=== PATIENT | female | born 1955 | race Caucasian/White ===

== ENCOUNTER → 2019-11-23 09:23 | Outpatient (BNVA) | payer OTHER, SELFPAY | PROVIDERS: Family Provider Family Medicine; PCP Family Medicine; Visit Provider Family Medicine | DX: Z13.6 Encounter for screening for cardiovascular disorders (principal); M54.6 Pain in thoracic spine; G89.29 Other chronic pain; R10.13 Epigastric pain | CPT/HCPCS: 80053; 80061; 85025 ==

== ENCOUNTER 2020-12-22 14:23 | Emergency (ER) | payer OTHER, SELFPAY ==
[2020-12-22 14:56] VITALS: BP 194/82; PULSE 79; RESP 14; TEMP 36.7; O2SAT 98; BMI 19.7
[2020-12-22 15:07] VITALS: BP 174/84; PULSE 74; RESP 16; O2SAT 97
--- NOTE | 2020-12-22 15:17 | CTR_ITS ---
PROCEDURE INFORMATION: Exam: CT Head Without Contrast Exam date and time: 12/22/2020 3:35 PM Age: 65 years old Clinical indication: Injury or trauma; Fall; Blunt trauma (contusions or hematomas); Without loss of consciousness; Patient HX: Slipped on ice hitting back of head denies loc; Additional info: Fall, head injury, dizziness. TECHNIQUE: Imaging protocol: Computed tomography of the head without contrast. Radiation optimization: All CT scans at this facility use at least one of these dose optimization techniques: automated exposure control; mA and/or kV adjustment per patient size (includes targeted exams where dose is matched to clinical indication); or iterative reconstruction. COMPARISON: No relevant prior studies available. RADIATION DOSE METRICS: Total DLP (mGy-cm): 751.41 FINDINGS: Brain: Mild cerebral atrophy. Mild scattered patchy decreased attenuation changes in the periventricular white matter most likely representing mild chronic microangiopathic ischemic disease features. No hemorrhage. Unremarkable white matter. No mass effect. Cerebral ventricles: No ventriculomegaly. Bones/joints: Unremarkable. No acute fracture. Paranasal sinuses: Visualized sinuses are unremarkable. No fluid levels. Mastoid air cells: Visualized mastoid air cells are well aerated. Soft tissues: Unremarkable. CT/CT head wo con* [id number] IMPRESSION: No acute intracranial abnormality. Radiation Dose CTDIVOL = (mGy): DLP = 751.41 (mGy-cm)
--- NOTE | 2020-12-22 16:20 | W.ED.FALL ---
HPI - Fall General: Chief Complaint: Fall Stated Complaint: Fell and hit back of head Time Seen by Provider: 12/22/20 15:03 Source: patient Mode of arrival: ambulatory Limitations: no limitations History of Present Illness: HPI Narrative: Patient is a 65-year-old female patient who slipped on ice home fell and hit the back of her head. She denies any loss of consciousness. She is not on anticoagulation. She denies dizziness but has nausea and a headache which she says is pretty bad. She is here to be evaluated. She said her father had an intracranial bleed. complaint: fall Onset (ago): hour(s) (1) Fall from: standing Fall witnessed: yes, by family Place fall occurred: home Loss of consciousness: None Prolonged down time: no Symptoms prior to fall: none Context: tripped/slipped (slipped on ice) Quality: dull Associated symptoms-after fall: Reports headache(s); Denies abdominal pain or neck pain Review of Systems General: Reports: 10 or more systems reviewed and unremarkable except in HPI and below Const: Denies: fever(s), chills or body aches Eyes: Denies: change in vision or blurry vision ENMT: Denies: throat pain, enlarged tonsils, odynophagia, hoarseness, mouth pain or swelling of lips/tongue Card: Denies: palpitations, irregular heart rhythm, edema or swelling of feet/ankles Resp: Denies: dyspnea, productive cough or non-productive cough GI: Reports: nausea; Denies: abdominal pain or vomiting : Denies: flank pain, difficulty voiding, dysuria, urinary frequency, urinary urgency or urinary hesitancy Musc: Denies: neck pain, back pain or extremity swelling Skin/Breast: Denies: rash, pruritus or erythema Neuro: Reports: headache(s) Endo: Denies: polyuria, polydipsia or tired all the time PFSH ED PFSH: Medical History (Reviewed 12/22/20 @ 17:38 by Sandy Villagomez MD, [facility] – [place]) Chronic thoracic back pain GERD (gastroesophageal reflux disease) Surgical History (Reviewed 12/22/20 @ 17:38 by Sandy Villagomez MD, [facility] – [place] H/O: hysterectomy S/P appendectomy S/P tonsillectomy and adenoidectomy Family History (Reviewed 12/22/20 @ 17:38 by Sandy Villagomez MD, [facility] – [place]) Other Diabetes Hypertension Social History (Reviewed 12/22/20 @ 17:38 by Sandy Villagomez MD, [facility] – [place]) Smoking and tobacco status: never smoked Alcohol intake: never Physical Exam Const: COMMON NORMALS: no acute distress, average body habitus, patient oriented x3, no limitations, healthy appearing, alert and well nourished HENMT: COMMON NORMALS: normocephalic, atraumatic and moist oral mucous membranes HEAD & SCALP: normocephalic and atraumatic Eye: COMMON NORMALS: Equal, round and reactive pupils present, EOMs intact bilaterally, conjunctivae normal and no scleral icterus CONJUNCTIVA: Yes conjunctivae normal PUPIL: Yes Equal, round and reactive pupils present Neck/C-Spine: COMMON NORMALS: full ROM, supple, no meningeal signs, no JVD and No carotid bruits CERVICAL SPINE: Yes cervical ROM normal, Yes normal cervical lordosis, No cervical ROM abnormal, No pain with cervical ROM and No Cervical spine tenderness Resp: COMMON NORMALS: normal respiratory effort, No retractions, No use of accessory muscles, clear to auscultation bilaterally and percussion normal AUSCULTATION: clear to auscultation bilaterally PERCUSSION: percussion normal Cardio: COMMON NORMALS: no JVD, regular rate, regular rhythm, S1 normal heart sound present, S2 normal heart sound present, No gallops present (Cardio), No clicks present (Cardio), No murmurs present (Cardio), No rub (Cardio) and Peripheral pulses 2+ throughout RATE: regular rate RHYTHM: regular rhythm HEART SOUNDS: S1 normal heart sound present and S2 normal heart sound present PERIPHERAL PULSES: Peripheral pulses 2+ throughout GI: COMMON NORMALS: Normal to inspection, nondistended, normoactive bowel sounds present, Soft to palpation, non-tender, No hepatosplenomegaly present, no masses and no bruits PALPATION: Yes Soft to palpation and Yes No hepatosplenomegaly present Extremity: COMMON NORMALS: normal to inspection, full ROM, capillary refill normal, no calf tenderness and no pedal edema Neuro: COMMON NORMALS: patient oriented x3 SENSORIUM/ORIENTATION: Yes alert MENINGEAL SIGNS: Yes no meningeal signs Skin: COMMON NORMALS: no rashes or lesions noted, no wounds, turgor normal, no jaundice, no petechiae and no mottling GENERAL SKIN EXAM: no rashes or lesions noted and turgor normal Course Reevaluation(s): Reevaluation #1: Discussed imaging findings with her. Negative for acute findings. Explained that she likely has a concussion from the fall. Given head injury and concussion instructions. Patient and her voiced understanding and they are in agreement with the plan. Time: 16:20 Vital Signs: Vital signs: Vital Signs Temperature 98.1 F 12/22/20 14:56 Pulse Rate 74 12/22/20 15:07 Respiratory Rate 16 12/22/20 15:07 Blood Pressure 174/84 12/22/20 15:07 Pulse Oximetry 97 12/22/20 15:07 MDM - Fall MDM Narrative: Medical decision making narrative: Patient is a 65-year-old female who slipped on ice and sustained a mild closed head injury. She likely also has a concussion. No acute findings on exam or imaging. She is discharged home with concussion instructions. Medical Records: Attestation: I reviewed the patient's medical records. Imaging Data^: CT Head: Attestation: I personally reviewed and interpreted this imaging study as follows: Radiologist's impression: [address] [address] [address] Scan Report Signed Patient: Zaida Matos #: [id number] : 6Acct#:[id number] Age/Sex: 65 / FADM Date: 12/22/20 Loc: ERRoom/Bed: Attending Dr: Ordering Provider/Ordering MD: Sandy Villagomez MD, [facility] – [place] Date of Service: 12/22/20 Procedure(s): CT head wo con* [id number] Accession Number(s): [id number] Report Number: [id number] PROCEDURE INFORMATION: Exam: CT Head Without Contrast Exam date and time: 12/22/2020 3:35 PM Age: 65 years old Clinical indication: Injury or trauma; Fall; Blunt trauma (contusions or hematomas); Without loss of consciousness; Patient HX: Slipped on ice hitting back of head denies loc; Additional info: Fall, head injury, dizziness. TECHNIQUE: Imaging protocol: Computed tomography of the head without contrast. Radiation optimization: All CT scans at this facility use at least one of these dose optimization techniques: automated exposure control; mA and/or kV adjustment per patient size (includes targeted exams where dose is matched to clinical indication); or iterative reconstruction. COMPARISON: No relevant prior studies available. RADIATION DOSE METRICS: Total DLP (mGy-cm): 751.41 FINDINGS: Brain: Mild cerebral atrophy. Mild scattered patchy decreased attenuation changes in the periventricular white matter most likely representing mild chronic microangiopathic ischemic disease features. No hemorrhage. Unremarkable white matter. No mass effect. Cerebral ventricles: No ventriculomegaly. Bones/joints: Unremarkable. No acute fracture. Paranasal sinuses: Visualized sinuses are unremarkable. No fluid levels. Mastoid air cells: Visualized mastoid air cells are well aerated. Soft tissues: Unremarkable. CT/CT head wo con* [id number] IMPRESSION: No acute intracranial abnormality. Radiation Dose CTDIVOL = (mGy): DLP = 751.41 (mGy-cm) Dictated By:Rainer Perez Signed By:Jeannette Perez Date/Time:12/22/20 1600 DD/ 155 Discharge Plan Discharge Patient Disposition: Home Clinical Impression: Concussion without loss of consciousness Qualifiers: Encounter type: initial encounter Qualified Code(s): S06.0X0A - Concussion without loss of consciousness, initial encounter Mild closed head injury Qualifiers: Encounter type: initial encounter Qualified Code(s): S09.90XA - Unspecified injury of head, initial encounter Condition: Stable Prescriptions: Continued Adult Probiotic 3 billion cell capsule 3,000 mmu cells PO QDAY RF: 0 meclizine 25 mg tablet 25 mg PO DAILY RF: 0 cetirizine [Zyrtec] 10 mg tablet 10 mg PO DAILY RF: 0 estradiol 1 mg tablet 1 mg PO DAILY RF: 0 omeprazole 40 mg capsule,delayed release(DR/EC) 40 mg PO DAILY RF: 0 Discharge Orders: Discharge ED (Routine); Ordered 12/22/20 Ordered By: Sandy Villagomez Referrals: Megha Martines DO [Primary Care Provider] - 1-3 days Discharge Diet: Usual diet Discharge Activity: Increase activity as tolerated Patient Instructions: Concussion/Head Injury - Adult, Concussion (ED) Activity Restrictions/Additional Instructions: Return for any new or worsening symptoms. Follow-up with your primary care provider within 3 days. You need to be observed for the next 24 hours for signs of severe head injury. The signs were to include worsening headaches, continuous vomiting with nonstop pain, trouble walking, change in mental status. You need to rest your brain for the next 1 week, so as much as possible stay in a darkened room, avoid TV, avoid using her phone, avoid reading books or other activities that may stimulate your brain. Coding Level of Care Code ED Sea Captain for Esthela Fitch
[2020-12-22] MEDS: ketorolac 30 mg/mL INJ IM (16:49)
== END 2020-12-22 17:18 | disposition home or self-care (01) ==
PROVIDERS: Emergency Provider Family Medicine; PCP Family Medicine
DX: S06.0X0A Concussion without loss of consciousness, initial encounter (principal); W00.0XXA Fall on same level due to ice and snow, initial encounter
CPT/HCPCS: 70450; 96372; 99283; J1885

== ENCOUNTER → 2022-02-23 08:36 | Outpatient (BNVA) | payer MEDICARE, OTHER, SELFPAY | PROVIDERS: PCP Family Medicine; Visit Provider Family Medicine | DX: I10 Essential (primary) hypertension (principal) | CPT/HCPCS: 80053; 80061; 82043; 85025 ==

== ENCOUNTER → 2022-03-03 13:08 | Outpatient (BNVA) | payer MEDICARE, OTHER, SELFPAY | PROVIDERS: PCP Family Medicine; Referring Provider Family Medicine; Visit Provider Podiatrist Foot & Ankle Surgery | DX: L84 Corns and callosities (principal); M20.41 Other hammer toe(s) (acquired), right foot; M20.42 Other hammer toe(s) (acquired), left foot; L60.3 Nail dystrophy | CPT/HCPCS: 99203; 99204 ==

== ENCOUNTER → 2022-05-17 10:18 | Outpatient (BNVA) | payer MEDICARE, OTHER, SELFPAY | PROVIDERS: PCP Family Medicine; Visit Provider Registered Nurse Neonatal Intensive Care | DX: N39.0 Urinary tract infection, site not specified (principal); R39.9 Unspecified symptoms and signs involving the genitourinary system | CPT/HCPCS: 81000 ==

== ENCOUNTER → 2022-05-19 15:34 | Outpatient (BNVA) | payer MEDICARE, OTHER, SELFPAY | PROVIDERS: PCP Family Medicine; Visit Provider Otolaryngology | DX: H72.92 Unspecified perforation of tympanic membrane, left ear (principal) | CPT/HCPCS: 99203 ==

== ENCOUNTER → 2022-05-25 08:46 | Outpatient (BNVA) | payer MEDICARE, OTHER, SELFPAY | PROVIDERS: PCP Family Medicine; Visit Provider Family Medicine | DX: N39.0 Urinary tract infection, site not specified (principal) | CPT/HCPCS: 81000; 87086 ==

== ENCOUNTER → 2022-06-08 08:22 | Outpatient (BNVA) | payer MEDICARE, OTHER, SELFPAY | PROVIDERS: PCP Family Medicine; Visit Provider Family Medicine | DX: N39.0 Urinary tract infection, site not specified (principal) | CPT/HCPCS: 81000 ==

== ENCOUNTER → 2022-06-19 09:20 | Outpatient (BNVA) | payer MEDICARE, OTHER, SELFPAY | PROVIDERS: PCP Family Medicine; Visit Provider Otolaryngology | DX: H72.92 Unspecified perforation of tympanic membrane, left ear (principal); H69.82 Other specified disorders of Eustachian tube, left ear | CPT/HCPCS: 99213 ==

== ENCOUNTER → 2022-06-25 17:07 | Outpatient (BNVA) | payer MEDICARE, SELFPAY | PROVIDERS: PCP Family Medicine; Visit Provider Registered Nurse Neonatal Intensive Care | DX: N39.0 Urinary tract infection, site not specified (principal); R39.9 Unspecified symptoms and signs involving the genitourinary system | CPT/HCPCS: 81000; 87086 ==

== ENCOUNTER → 2022-07-06 09:12 | Outpatient (BNVA) | payer MEDICARE, OTHER, SELFPAY | PROVIDERS: PCP Family Medicine; Visit Provider Nurse Practitioner Family | DX: R33.9 Retention of urine, unspecified (principal); R31.29 Other microscopic hematuria | CPT/HCPCS: 51798; 81003; 99203 ==

== ENCOUNTER → 2022-09-15 14:01 | Outpatient (BNVA) | payer MEDICARE, OTHER, SELFPAY | PROVIDERS: PCP Family Medicine; Visit Provider Urology | DX: R31.29 Other microscopic hematuria (principal); Z87.440 Personal history of urinary (tract) infections | CPT/HCPCS: 81003; 99212 ==

== ENCOUNTER → 2022-09-22 13:20 | Outpatient (BNVA) | payer MEDICARE, OTHER, SELFPAY | PROVIDERS: PCP Family Medicine; Visit Provider Family Medicine | DX: I10 Essential (primary) hypertension (principal) | CPT/HCPCS: 80053 ==

== ENCOUNTER → 2022-09-24 13:20 | Outpatient (BNVA) | payer MEDICARE, OTHER, SELFPAY | PROVIDERS: PCP Family Medicine; Visit Provider Family Medicine | DX: R79.89 Other specified abnormal findings of blood chemistry (principal); R73.09 Other abnormal glucose | CPT/HCPCS: 83036; 86705; 86706; 86709; 86803; 87340 ==

== ENCOUNTER → 2022-10-29 14:30 | Outpatient (BNVA) | payer MEDICARE, SELFPAY | PROVIDERS: PCP Family Medicine; Visit Provider Family Medicine | DX: L81.9 Disorder of pigmentation, unspecified (principal); L98.9 Disorder of the skin and subcutaneous tissue, unspecified | CPT/HCPCS: 88304 ==

== ENCOUNTER → 2023-03-23 08:16 | Outpatient (BNVA) | payer MEDICARE, SELFPAY | PROVIDERS: PCP Family Medicine; Visit Provider Family Medicine | DX: I10 Essential (primary) hypertension (principal) | CPT/HCPCS: 80053; 80061; 82043; 85025 ==

== ENCOUNTER → 2023-06-30 09:35 | Outpatient (BNVA) | payer MEDICARE, SELFPAY | PROVIDERS: PCP Family Medicine; Visit Provider Nurse Practitioner Family | DX: L81.4 Other melanin hyperpigmentation; D22.5 Melanocytic nevi of trunk; L57.8 Other skin changes due to chronic exposure to nonionizing radiation; L82.1 Other seborrheic keratosis | CPT/HCPCS: 99213 ==

== ENCOUNTER 2023-09-24 13:57 | Outpatient (CLI) | payer MEDICARE, SELFPAY ==
--- NOTE | 2023-09-24 14:30 | XR_ITS ---
WS: [id number] SCREENING DEXA SCAN [employer] CLINICAL INFORMATION: postmenopausal COMPARISON: None. FINDINGS: The L1-L4 bone mineral density measures 1.059 g/cm2. This corresponds to a T score score of -1.0 and Z score of 1.0. Left femoral neck bone mineral density measures 0.802 g/cm2. This corresponds to a T score of -1.6 an d Z score of 0.0. Right femoral neck bone mineral density measures 0.847 g/cm2. This corresponds to a T score -1.3of an d Z score of 0.3. Mean femoral neck bone mineral density measures 0.825 g/cm2. This corresponds to a T score of -1.5 an d Z score of 0.1. IMPRESSION: Osteopenia lumbar spine at the lower end of the range. Osteopenia femoral necks. Patient's FRAX calcu lated 10 year probability for major osteoporotic fracture is 9.4% and osteoporotic hip fracture is 1. 5%.
== END 2023-09-24 13:58 | disposition home or self-care (01) ==
LOC: RAD 13:57
PROVIDERS: PCP Family Medicine; Visit Provider Family Medicine
DX: Z78.0 Asymptomatic menopausal state (principal); M85.89 Other specified disorders of bone density and structure, multiple sites
CPT/HCPCS: 77080

== ENCOUNTER → 2024-03-21 08:33 | Outpatient (BNVA) | payer MEDICARE, SELFPAY | PROVIDERS: PCP Family Medicine; Visit Provider Family Medicine | DX: I10 Essential (primary) hypertension (principal); Z13.6 Encounter for screening for cardiovascular disorders | CPT/HCPCS: 80053; 80061; 82043; 85025 ==

== ENCOUNTER → 2024-04-04 08:01 | Outpatient (BNVA) | payer MEDICARE, SELFPAY | PROVIDERS: PCP Family Medicine; Visit Provider Nurse Practitioner Family | DX: R39.89 Other symptoms and signs involving the genitourinary system (principal) | CPT/HCPCS: 81000; 87086 ==

== ENCOUNTER → 2024-06-03 12:53 | Outpatient (BNVA) | payer MEDICARE, SELFPAY | PROVIDERS: PCP Family Medicine; Visit Provider Emergency Medicine | DX: S69.91XA Unspecified injury of right wrist, hand and finger(s), initial encounter (principal); W19.XXXA Unspecified fall, initial encounter | CPT/HCPCS: 73130 ==

== ENCOUNTER → 2024-06-20 10:15 | Outpatient (BNVA) | payer MEDICARE, SELFPAY | PROVIDERS: PCP Family Medicine; Visit Provider Student in an Organized Health Care Education/Training Program | DX: S60.221A Contusion of right hand, initial encounter; W10.9XXA Fall (on) (from) unspecified stairs and steps, initial encounter | CPT/HCPCS: 73130 ==

== ENCOUNTER 2024-06-20 12:00 | Outpatient (CLI) | payer MEDICARE, SELFPAY | END 2024-06-20 12:01 | disposition home or self-care (01) | LOC: SPT 12:01 | PROVIDERS: PCP Family Medicine; Visit Provider Student in an Organized Health Care Education/Training Program | DX: Z46.89 Encounter for fitting and adjustment of other specified devices (principal); M25.541 Pain in joints of right hand; S69.90XD Unspecified injury of unspecified wrist, hand and finger(s), subsequent encounter; X58.XXXD Exposure to other specified factors, subsequent encounter | CPT/HCPCS: 97760; L3908 ==

== ENCOUNTER 2024-06-23 09:49 | Outpatient (RCR) | payer MEDICARE, SELFPAY | END 2024-07-08 23:59 | disposition home or self-care (01) | LOC: SOT 09:49 | PROVIDERS: PCP Family Medicine Adult Medicine; Visit Provider Student in an Organized Health Care Education/Training Program | DX: S60.051A Contusion of right little finger without damage to nail, initial encounter (principal); X58.XXXA Exposure to other specified factors, initial encounter | CPT/HCPCS: 97022; 97110; 97140; 97165; 97530 ==

== ENCOUNTER → 2024-06-30 08:13 | Outpatient (BNVA) | payer MEDICARE, SELFPAY | PROVIDERS: PCP Family Medicine Adult Medicine; Visit Provider Nurse Practitioner Family | DX: D23.5 Other benign neoplasm of skin of trunk (principal); D23.71 Other benign neoplasm of skin of right lower limb, including hip; L81.4 Other melanin hyperpigmentation; D22.5 Melanocytic nevi of trunk; L57.8 Other skin changes due to chronic exposure to nonionizing radiation; L82.1 Other seborrheic keratosis; L57.0 Actinic keratosis; B07.8 Other viral warts | CPT/HCPCS: 17000; 17110; 99213 ==

== ENCOUNTER 2024-07-09 06:00 | Outpatient (RCR) | payer MEDICARE, SELFPAY | END 2024-08-07 23:59 | disposition home or self-care (01) | LOC: SOT 06:00 | PROVIDERS: PCP Family Medicine Adult Medicine; Visit Provider Student in an Organized Health Care Education/Training Program | DX: S60.051A Contusion of right little finger without damage to nail, initial encounter (principal); X58.XXXA Exposure to other specified factors, initial encounter | CPT/HCPCS: 97022; 97110; 97140 ==

== ENCOUNTER → 2024-07-18 09:36 | Outpatient (BNVA) | payer MEDICARE, SELFPAY | PROVIDERS: PCP Family Medicine Adult Medicine; Visit Provider Student in an Organized Health Care Education/Training Program | DX: S60.221D Contusion of right hand, subsequent encounter; X58.XXXD Exposure to other specified factors, subsequent encounter | CPT/HCPCS: 73130; 99213 ==

== ENCOUNTER → 2024-08-04 08:06 | Outpatient (BNVA) | payer MEDICARE, SELFPAY | PROVIDERS: PCP Family Medicine Adult Medicine; Visit Provider Nurse Practitioner Family | DX: D23.5 Other benign neoplasm of skin of trunk (principal); D23.71 Other benign neoplasm of skin of right lower limb, including hip; L81.4 Other melanin hyperpigmentation; D22.5 Melanocytic nevi of trunk; L57.8 Other skin changes due to chronic exposure to nonionizing radiation; L82.1 Other seborrheic keratosis; B07.8 Other viral warts; L57.0 Actinic keratosis | CPT/HCPCS: 17000; 17110; 99213 ==

== ENCOUNTER → 2024-09-14 07:52 | Outpatient (BNVA) | payer MEDICARE, SELFPAY | PROVIDERS: PCP Family Medicine Adult Medicine; Visit Provider Nurse Practitioner Family | DX: L81.4 Other melanin hyperpigmentation (principal); D22.4 Melanocytic nevi of scalp and neck; L57.8 Other skin changes due to chronic exposure to nonionizing radiation; B07.8 Other viral warts; L57.0 Actinic keratosis | CPT/HCPCS: 17000; 17110; 99213 ==

== ENCOUNTER → 2024-10-17 07:56 | Outpatient (BNVA) | payer MEDICARE, SELFPAY | PROVIDERS: PCP Family Medicine Adult Medicine; Visit Provider Nurse Practitioner Family | DX: L57.8 Other skin changes due to chronic exposure to nonionizing radiation (principal); B07.8 Other viral warts; L29.89 Other pruritus; L53.8 Other specified erythematous conditions | CPT/HCPCS: 17110; 99213 ==

== ENCOUNTER → 2024-12-15 08:12 | Outpatient (BNVA) | payer MEDICARE, SELFPAY | PROVIDERS: PCP Family Medicine Adult Medicine; Visit Provider Nurse Practitioner Family | DX: B07.8 Other viral warts (principal); L57.8 Other skin changes due to chronic exposure to nonionizing radiation | CPT/HCPCS: 99213 ==

== ENCOUNTER → 2025-03-15 08:25 | Outpatient (BNVA) | payer MEDICARE, SELFPAY | PROVIDERS: PCP Family Medicine; Visit Provider Family Medicine | DX: I10 Essential (primary) hypertension (principal) | CPT/HCPCS: 80053; 80061; 81003; 84443; 85025 ==

== ENCOUNTER → 2025-07-02 09:17 | Outpatient (BNVA) | payer MEDICARE, SELFPAY | PROVIDERS: PCP Family Medicine; Visit Provider Nurse Practitioner Family | DX: L81.4 Other melanin hyperpigmentation (principal); L57.8 Other skin changes due to chronic exposure to nonionizing radiation; L82.1 Other seborrheic keratosis; D22.4 Melanocytic nevi of scalp and neck; I99.8 Other disorder of circulatory system | CPT/HCPCS: 11102; 69100; 99213 ==

== ENCOUNTER 2025-08-06 06:50 | Emergency (ER) | payer MEDICARE, SELFPAY ==
--- OUTSIDE RECORDS SUMMARY | 2025-08-06 06:54 | XMS_ITS | Encounter Summary ---
Author Organization [facility] Address [address] [place] [address] Care Team Providers Care Principal Associate Name Role Phone Megha Martines DO Primary Care Provider +1- [phone] Encounter Details Date Type Department Care Team (Latest Contact Info) Description 06/10/2006 Outpatient Historical [facility] Ortiz, Jose Dominguez MD NO ADDRESS ON FILE Lump or Mass in Breast (Primary Dx) Social History Tobacco Use Types Packs/Day Years Used Date Smoking Tobacco: Never Assessed Comments Unknown Sex and Gender Information Value Date Recorded Sex Assigned at Not on file 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
--- OUTSIDE RECORDS SUMMARY | 2025-08-06 06:54 | XMS_ITS | Encounter Summary ---
Author Organization [facility] Address [address] [place] [address] Care Team Providers Care Industrial Design Engineer Name Role Phone Megha Martines DO Primary Care Provider +1- [phone] Encounter Details Date Type Department Care Team (Latest Contact Info) Description 06/02/2006 Outpatient Historical [facility] [address] [facility] [address] [place] [id number] Delmy Arroyo MD NO ADDRESS ON FILE Other Screening Mammogram (Primary Dx) Social History Tobacco Use Types Packs/Day Years Used Date Smoking Tobacco: Never Assessed Comments Unknown Sex and Gender Information Value Date Recorded Sex Assigned at Not on file 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
--- OUTSIDE RECORDS SUMMARY | 2025-08-06 06:54 | XMS_ITS | Encounter Summary ---
Author Organization [facility] Address [address] [place] [address] Care Team Providers Care Vice President Of Operations Name Role Phone Megha Martines DO Primary Care Provider +1- [phone] Encounter Details Date Type Department Care Team (Latest Contact Info) Description 06/10/2006 Outpatient Historical [facility] [address] [place] [address] Parker Ortiz, Jose Dominguez MD NO ADDRESS ON FILE Atrophic Vaginitis (Primary Dx); Premature Menopause Social History Tobacco Use Types Packs/Day Years Used Date Smoking Tobacco: Never Assessed Comments Unknown Sex and Gender Information Value Date Recorded Sex Assigned at Not on file 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
--- OUTSIDE RECORDS SUMMARY | 2025-08-06 06:54 | XMS_ITS | Encounter Summary ---
Author Organization [facility] Address [address] [place] [address] Care Team Providers Care Railroad Signal Operator Name Role Phone Megha Martines DO Primary Care Provider +1- [phone] Encounter Details Date Type Department Care Team (Latest Contact Info) Description 06/10/2006 Outpatient Historical [facility] [address] [facility] [address] [place] [phone] Robert Mendez MD NO ADDRESS ON FILE Lump or Mass in Breast (Primary Dx); Premature Menopause Social History Tobacco Use Types Packs/Day Years Used Date Smoking Tobacco: Never Assessed Comments Unknown Sex and Gender Information Value Date Recorded Sex Assigned at Not on file 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
--- OUTSIDE RECORDS SUMMARY | 2025-08-06 06:55 | XMS_ITS | Encounter Summary ---
Author Organization [facility] Address [address] [place] [address] Care Team Providers Care Trains Dispatcher Supervisor Name Role Phone Megha Martines DO Primary Care Provider +1- [phone] Encounter Details Date Type Department Care Team (Latest Contact Info) Description 03/14/2003 Outpatient [facility] [address] [place] [address] Jose Canales Jr., MD NO ADDRESS ON FILE SCREENING MAMM-MAILG NEOPL-OTHER (Primary Dx) Social History Tobacco Use Types Packs/Day Years Used Date Smoking Tobacco: Never Assessed Comments Unknown Sex and Gender Information Value Date Recorded Sex Assigned at Not on file 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
--- OUTSIDE RECORDS SUMMARY | 2025-08-06 06:55 | XMS_ITS | Encounter Summary ---
Author Organization [facility] Address [address] [place] [address] Care Team Providers Care Scrap Bunch Maker Name Role Phone Yasmeen Martinesnifer Tiffanie VANEGAS Primary Care Provider +1- [phone] Reason for Referral * Outpatient Services (Routine) - Closed Specialty Diagnoses / Procedures Referred By Maria C taveras Referred To Contact Diagnoses Encounter for screening mammogram for breast cancer Procedures MAMMO DIGITAL SCREEN BILAT Paulina Pedersen MD Phone: tel: fax: Referral ID Status Reason Start Date Expiration Date Visits Re quested Visits Authorized [id number] Closed 09/29/2016 10/30/2017 1 1 MARKETING Encounter Details Date Type Department Care Team (Late st Contact Info) Description 09/29/2016 Ancillary Orders [facility] Pre-Registration [place] CALL TO MAKE APPOINTMENT ONLY [address] [place] [address] Paulina Pedersen MD [address] [facility] [place] [address] Encounter for screening mammogram for breast cancer Social History Tobacco Use Types Packs/Day Years Used Date Smoking Tobacco: Never Smokeless Tobacco: Never Alcohol Use Standard Drinks/Week Comments No 0 (1 standard drink = 0.6 oz pur e alcohol) Comments No Sex and Gender Information Value Date Recorded Sex Assigned at Not on file 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 Gender Identity Not on file Sexual Orientation Not on file Occupation Industry Job Start Date Job End Date Not on file Not on file Not on file Not on file documented as of this encounter Plan of Treatment Not on file documented as of this encounter Results * MAMMO DIGITAL SCREEN BILAT (01/29/2017 8:57 AM CDT) Anatomical Region Laterality Modality Breast Bilateral Mammography 01/29/2017 9:05 AM CDT Narrative 02/01/2017 12:59 PM CDT MAMMO SCREEN BILAT W OR WO CAD INDICATION FOR EXAMINATION: Encounter for screening mammogram for breast cancer COMPARISONS: Mammogram dated 05/21/2009, 08/23/2012, 08/25/2013, 08/28/2014, 10/24/2015. BREAST COMPOSITION: Heterogeneously dense which may obscure small masses. FINDINGS: This digital mammogram was also analyzed by the Computer Aided Detection System (CAD), [employer], Version 8.3. There is an asymmetry within the superior left breast seen on MLO at mid to posterior depth. The right breast demonstrates no suspicious abnormality; its fibroglandular pattern is stable. ASSESSMENT: Incomplete evaluation. Additional imaging is needed. BI-RADS 0. RECOMMENDATIONS: Diagnostic left breast mammogram. Additional imaging of the left breast to include spot compression view in the MLO projection as well as an exaggerated lateral CC and true lateral images. [id number] Procedure Note Vince Chris MD - 02/01/2017 MAMMO SCREEN BILAT W OR WO CAD INDICATION FOR EXAMINATION: Encounter for screening mammogram for breast cancer COMPARISONS: Mammogram dated 05/21/2009, 08/23/2012, 08/25/2013, 08/28/2014, 10/24/2015. BREAST COMPOSITION: Heterogeneously dense which may obscure small masses. FINDINGS: This digital mammogram was also analyzed by the Computer Aided Detection System (CAD), [employer], Version 8.3. There is an asymmetry within the superior left breast seen on MLO at mid to posterior depth. The right breast demonstrates no suspicious abnormality; its fibroglandular pattern is stable. ASSESSMENT: Incomplete evaluation. Additional imaging is needed. BI-RADS 0. RECOMMENDATIONS: Diagnostic left breast mammogram. Additional imaging of the left breast to include spot compression view in the MLO projection as well as an exaggerated lateral CC and true lateral images. [id number] us Paulina Pedersen MD MAMMO ORDERABLES Final Res ult documented in this encounter Visit Diagnoses Diagnosis Encounter for screening mammogram for breast cancer Encounter for screening mammogram for breast cancer documented in this encounter Care Teams Scrap Bunch Maker Relationship Specialty Start Date End Date Megha Martines DO PCP - General Family Practice 09/21/18 documented as of this encounter
--- OUTSIDE RECORDS SUMMARY | 2025-08-06 06:55 | XMS_ITS | Encounter Summary ---
Author Organization [facility] Address [address] [place] [address] Care Team Providers Care Wine And Spirits Clerk Name Role Phone Megha Martines DO Primary Care Provider +1- [phone] Encounter Details Date Type Department Care Team (Late st Contact Info) Description 04/15/2009 Ancillary Orders [facility] OBGYN-[address] [place] [address] Kiki Rdz MD NO ADDRESS ON FILE Other Screening Mammogram Social History Tobacco Use Types Packs/Day Years Used Date Smoking Tobacco: Never Assessed Comments Unknown Sex and Gender Information Value Date Recorded Sex Assigned at Not on file 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
--- OUTSIDE RECORDS SUMMARY | 2025-08-06 06:55 | XMS_ITS | Encounter Summary ---
Author Organization [facility] Address [address] [place] [address] Care Team Providers Care Manager Product Support Name Role Phone ConradMegah Tiffanie VANEGAS Primary Care Provider +1- [phone] Reason for Referral * Outpatient Services (Routine) - Closed Specialty Diagnoses / Procedures Referred By Maria C taveras Referred To Contact Diagnoses Other screening mammogram Procedures MAMMO DIGITAL SCREEN BILAT Kiki Rdz MD NO ADDRESS ON FILE [facility] Pre-Registration [place] CALL TO MAKE APPOINTMENT ONLY [address] [place] [address] Phone: tel: fax: Referral ID Status Reason Start Date Expiration Date Visits Re quested Visits Authorized [id number] Closed 07/18/2012 07/18/2013 1 1 Encounter Details Date Type Department Care Team (Latest Contact Info) Description 07/18/2012 Ancillary Orders [facility] Pre-Registration [place] CALL TO MAKE APPOINTMENT ONLY [address] [place] [address] Kiki Rdz MD NO ADDRESS ON FILE Other screening mammogram Social History Tobacco Use Types Packs/Day Years Used Date Smoking Tobacco: Never Smokeless Tobacco: Never Alcohol Use Standard Drinks/Week Comments No 0 (1 standard drink = 0.6 oz pur e alcohol) Comments No Sex and Gender Information Value Date Recorded Sex Assigned at Not on file 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 Findings: Bilateral CC and MLO views were obtained. This examination was reviewed with the aid of a computer-aided detection system(CAD). The breast tissue is dense. No significant new findings since the prior mammogram(s). Procedure Note Yong Mendez MD - 08/24/2012 Bilateral Mammogram Reason for Exam: Screening Comparison: Comparison is made with prior exam(s). Findings: Bilateral CC and MLO views were obtained. This examination was reviewed with the aid of a computer-aided detectionsystem(CAD). The breast tissue is dense. No significant new findings since the prior mammogram(s). us W Hari Rdz MD MAMMO ORDERABLES Final Resul t documented in this encounter Visit Diagnoses Diagnosis Other screening mammogram Other screening mammogram documented in this encounter Care Teams Manager Product Support Relationship Specialty Start Date End Date Megha Martines DO PCP - General Family Practice 09/21/18 documented as of this encounter
--- OUTSIDE RECORDS SUMMARY | 2025-08-06 06:55 | XMS_ITS | Encounter Summary ---
Author Organization [facility] Address [address] [facility] Attn: [place] [address] Care Team Providers Care Image Consultant Name Role Phone Megha Martines DO Primary Care Provider +1- [phone] Encounter Details Date Type Department Care Team (Late st Contact Info) Description 07/25/2001 Outpatient Historical Paul Beckham MD [facility] [address] [address] Social History Tobacco Use Types Packs/Day Years Used Date Smoking Tobacco: Never Assessed Comments Unknown Sex and Gender Information Value Date Recorded Sex Assigned at Not on file 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
--- OUTSIDE RECORDS SUMMARY | 2025-08-06 06:55 | XMS_ITS | Encounter Summary ---
Author Organization [facility] Address [address] [place] [address] Care Team Providers Care Intraoperative Neuro Tech Name Role Phone Megha Martines DO Primary Care Provider +1- [phone] Encounter Details Date Type Department Care Team (Latest Contact Info) Description 09/08/1999 Outpatient Historical [facility] Giovannala nena Osmani Seth NO ADDRESS ON FILE Pain in limb (Primary Dx) Social History Tobacco Use Types Packs/Day Years Used Date Smoking Tobacco: Never Assessed Comments Unknown Sex and Gender Information Value Date Recorded Sex Assigned at Not on file 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
--- OUTSIDE RECORDS SUMMARY | 2025-08-06 06:55 | XMS_ITS | Encounter Summary ---
Author Organization [facility] Address [address] [place] [address] Care Team Providers Care Undergraduate Internship Name Role Phone Megha Martines DO Primary Care Provider +1- [phone] Encounter Details Date Type Department Care Team (Late st Contact Info) Description 05/22/2009 Ancillary Orders [facility] OBGYN-[address] [place] [address] Kiki Rdz MD NO ADDRESS ON FILE Other Screening Mammogram Social History Tobacco Use Types Packs/Day Years Used Date Smoking Tobacco: Never Alcohol Use Standard Drinks/Week Comments No 0 (1 standard drink = 0.6 oz pur e alcohol) Comments No Sex and Gender Information Value Date Recorded Sex Assigned at Not on file 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
--- OUTSIDE RECORDS SUMMARY | 2025-08-06 06:55 | XMS_ITS | Encounter Summary ---
Author Organization [facility] Address [address] [place] [address] Care Team Providers Care Cell Stripper Name Role Phone Megha Martines DO Primary Care Provider +1- [phone] Encounter Details Date Type Department Care Team (Late st Contact Info) Description 03/24/2021 Ancillary Orders [facility] [address] [facility] [address] [place] [address] Paulina Pedersen MD [address] 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
--- OUTSIDE RECORDS SUMMARY | 2025-08-06 06:55 | XMS_ITS | Encounter Summary ---
Author Organization [facility] Address [address] [place] [address] Care Team Providers Care Naturopathic Doctor Name Role Phone ConradMegha Tiffanie VANEGAS Primary Care Provider +1- [phone] Reason for Referral * Outpatient Services (Routine) - Closed Specialty Diagnoses / Procedures Referred By Contac t Referred To Contact Radiology Diagnoses Encounter for screening mammogram for malignant neoplasm of breast Procedures MAMMO SCREEN BILAT W OR WO CAD Paulina Pedersen MD Phone: tel: fax: [facility] [address] [facility] [address] [place] [address] Phone: tel: fax: Referral ID Status Reason Start Date Expiration Date Visits Re quested Visits Authorized [id number] Closed 01/17/2018 02/17/2019 1 1 Encounter Details Date Type Department Care Team (Late st Contact Info) Description 01/17/2018 Ancillary Orders [facility] [address] [facility] [address] [place] [address] Paulina Pedersen MD [address] [facility] [place] [address] Encounter for screening mammogram for malignant neoplasm of breast Social History Tobacco Use Types Packs/Day Years Used Date Smoking Tobacco: Never Smokeless Tobacco: Never Alcohol Use Standard Drinks/Week Comments No 0 (1 standard drink = 0.6 oz pur e alcohol) Comments No Sex and Gender Information Value Date Recorded Sex Assigned at Not on file 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 Gender Identity Not on file Sexual Orientation Not on file Occupation Industry Job Start Date Job End Date Not on file Not on file Not on file Not on file documented as of this encounter Plan of Treatment Not on file documented as of this encounter Results * MAMMO SCREEN BILAT W OR WO CAD (02/11/2018 12:31 PM CDT) Anatomical Region Laterality Modality Breast Bilateral Mammography Narrative 02/14/2018 11:57 AM CDT Bilateral Mammogram Reason for Exam: Screening Comparison: Compared to: 01/29/2017 MAMMO DIGITAL SCREEN BILAT, 10/24/2015 MAMMO DIGITAL SCREEN BILAT, 08/28/2014 MAMMO DIGITAL SCREEN BILAT, 08/25/2013 MAMMO DIGITAL SCREEN BILAT, and 08/23/2012 MAMMO DIGITAL SCREEN BILAT Findings: Bilateral CC and MLO views were obtained. This examination was reviewed with the aid of a computer-aided detection system(CAD). Breast Composition: The breasts are heterogeneously dense, which may obscure small masses. There are no suspicious masses, areas of architectural distortions, or microcalcifications to suggest malignancy. No significant new findings since the prior mammogram(s). us Paulina Pedersen MD MAMMO ORDERABLES Final Res ult documented in this encounter Visit Diagnoses Diagnosis Encounter for screening mammogram for malignant neoplasm of breast Other screening mammogram Encounter for screening mammogram for malignant neoplasm of breast Other screening mammogram documented in this encounter Care Teams Naturopathic Doctor Relationship Specialty Start Date End Date Megha Martines DO PCP - General Family Practice 09/21/18 documented as of this encounter
--- OUTSIDE RECORDS SUMMARY | 2025-08-06 06:55 | XMS_ITS | Encounter Summary ---
Author Organization [facility] Address [address] [place] [address] Care Team Providers Care Winder Contort Operator Name Role Phone Megha Martines DO Primary Care Provider +1- [phone] Encounter Details Date Type Department Care Team (Latest Contact Info) Description 11/05/2000 Outpatient Historical [facility] Jaun Justin Jr., MD [address] [place] [phone] Contusion of multiple sites, not elsewhere classified (Primary Dx); Cellulitis and abscess of unspecified site; Dog bite(E906.0) Social History Tobacco Use Types Packs/Day Years Used Date Smoking Tobacco: Never Assessed Comments Unknown Sex and Gender Information Value Date Recorded Sex Assigned at Not on file 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
--- OUTSIDE RECORDS SUMMARY | 2025-08-06 06:55 | XMS_ITS | Encounter Summary ---
Author Organization [facility] Address [address] [place] [address] Care Team Providers Care Death Clearance Coordinator Name Role Phone Megha Martines DO Primary Care Provider +1- [phone] Encounter Details Date Type Department Care Team (Late st Contact Info) Description 04/30/2004 Outpatient [facility] [address] [facility] [address] [place] [address] Evelyne Santos MD NO ADDRESS ON FILE SCREENING MAMM-MAILG NEOPL-OTHER (Primary Dx) Social History Tobacco Use Types Packs/Day Years Used Date Smoking Tobacco: Never Assessed Comments Unknown Sex and Gender Information Value Date Recorded Sex Assigned at Not on file 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
--- OUTSIDE RECORDS SUMMARY | 2025-08-06 06:55 | XMS_ITS | Encounter Summary ---
Author Organization [facility] Address [address] [place] [address] Care Team Providers Care Purification Operator Name Role Phone Megha Martines DO Primary Care Provider +1- [phone] Encounter Details Date Type Department Care Team (Latest Contact Info) Description 04/30/2004 Outpatient Historical [facility] [address] [place] [address] Parker Ortiz, Jose Dominguez MD NO ADDRESS ON FILE Routine medical exam (Primary Dx); Gynecologic examination Social History Tobacco Use Types Packs/Day Years Used Date Smoking Tobacco: Never Assessed Comments Unknown Sex and Gender Information Value Date Recorded Sex Assigned at Not on file 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
--- OUTSIDE RECORDS SUMMARY | 2025-08-06 06:55 | XMS_ITS | Encounter Summary ---
Author Organization [facility] Address [address] [place] [address] Care Team Providers Care Raisin Separator Operator Name Role Phone Megha Martines Primary Care Provider +1- [phone] Reason for Referral * Outpatient Services (Routine) - Closed Specialty Diagnoses / Procedures Referred By Contfelix t Referred To Contact Diagnoses Other screening mammogram Procedures MAMMO DIGITAL SCREEN BILAT Kiki Rdz MD NO ADDRESS ON FILE Referral ID Status Reason Start Date Expiration Date Visits Re quested Visits Authorized [id number] Closed 06/20/2010 12/17/2010 1 1 Encounter Details Date Type Department Care Team (Late st Contact Info) Description 06/20/2010 Ancillary Orders [facility] [address] [address] Kiki Rdz MD NO ADDRESS ON FILE Other Screening Mammogram Social History Tobacco Use Types Packs/Day Years Used Date Smoking Tobacco: Never Alcohol Use Standard Drinks/Week Comments No 0 (1 standard drink = 0.6 oz pur e alcohol) Comments No Sex and Gender Information Value Date Recorded Sex Assigned at Not on file 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 This examination was reviewed with the aid of a computer-aided detection system(CAD). The breast tissue density is average. No significant new findings since the prior mammogram(s). Procedure Note Balbir Mcfadden MD - 06/19/2011 Bilateral Mammogram Reason for Exam: Screening Comparison: Comparison is made with the prior exam(s) [id number] Findings: Bilateral CC and MLO views were obtained. This examination was reviewed with the aid of a computer-aided detectionsystem(CAD). The breast tissue density is average. No significant new findings since the prior mammogram(s). W Hari Rdz MD MAMMO ORDERABLES Final Resul t documented in this encounter Visit Diagnoses Diagnosis Other screening mammogram Other screening mammogram documented in this encounter Care Teams Raisin Separator Operator Relationship Specialty Start Date End Date Megha Martines DO PCP - General Family Practice 09/21/18 documented as of this encounter
--- OUTSIDE RECORDS SUMMARY | 2025-08-06 06:55 | XMS_ITS | Encounter Summary ---
Author Organization [facility] Address [address] [place] [address] Care Team Providers Care Dry Can Tender Name Role Phone Megha Martines Tiffanie VANEGAS Primary Care Provider +1- [phone] Reason for Referral * Outpatient Services (Routine) - Closed Specialty Diagnoses / Procedures Referred By Contac t Referred To Contact Radiology Diagnoses Other screening mammogram Procedures MAMMO DIGITAL SCREEN BILAT Kiki Rdz MD NO ADDRESS ON FILE [facility] [address] [facility] [address] [place] [address] Phone: tel: fax: Referral ID Status Reason Start Date Expiration Date Visits Re quested Visits Authorized [id number] Closed 07/19/2014 08/19/2015 1 1 Encounter Details Date Type Department Care Team (Latest Contact Info) Description 07/19/2014 Ancillary Orders [facility] Pre-Registration [place] CALL TO MAKE APPOINTMENT ONLY [address] [place] [address] Kiki Rdz MD NO ADDRESS ON FILE Other screening mammogram (Primary Dx) Social History Tobacco Use Types Packs/Day Years Used Date Smoking Tobacco: Never Smokeless Tobacco: Never Alcohol Use Standard Drinks/Week Comments No 0 (1 standard drink = 0.6 oz pur e alcohol) Comments No Sex and Gender Information Value Date Recorded Sex Assigned at Not on file 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 Gender Identity Not on file Sexual Orientation Not on file Occupation Industry Job Start Date Job End Date Not on file Not on file Not on file Not on file documented as of this encounter Plan of Treatment Not on file documented as of this encounter Results * MAMMO DIGITAL SCREEN BILAT (08/28/2014 8:37 AM CDT) Anatomical Region Laterality Modality Breast Bilateral Mammography Narrative 08/29/2014 2:00 PM CDT Bilateral Mammogram Reason for Exam: Screening Comparison: Compared to: 08/25/2013 MAMMO DIGITAL SCREEN BILAT, 08/23/2012 MAMMO DIGITAL SCREEN BILAT, 06/18/2011 MAMMO DIGITAL SCREEN BILAT, 06/12/2010 MAMMO DIGITAL SCREEN BILAT, 05/21/2009 MAMMO DIGITAL SCREEN BILAT Findings: Bilateral CC and MLO views were obtained. This examination was reviewed with the aid of a computer-aided detection system(CAD). The breast tissue is dense. No significant new findings since the prior mammogram(s). Procedure Note Robert Mendez MD - 08/29/2014 Bilateral Mammogram Reason for Exam: Screening Comparison: Compared to: 08/25/2013 MAMMO DIGITAL SCREEN BILAT, 08/23/2012MAMMO DIGITAL SCREEN BILAT, 06/18/2011 MAMMO DIGITAL SCREEN BILAT,06/12/2010 MAMMO DIGITAL SCREEN BILAT, 05/21/2009 MAMMO DIGITAL SCREENBILAT Findings: Bilateral CC and MLO views were obtained. This examination was reviewed with the aid of a computer-aided detectionsystem(CAD). The breast tissue is dense. No significant new findings since the prior mammogram(s). us W Hari Rdz MD MAMMO ORDERABLES Final Resul t documented in this encounter Visit Diagnoses Diagnosis Other screening mammogram- Primary Other screening mammogram documented in this encounter Care Teams Dry Can Tender Relationship Specialty Start Date End Date Megha Martines DO PCP - General Family Practice 09/21/18 documented as of this encounter
--- OUTSIDE RECORDS SUMMARY | 2025-08-06 06:55 | XMS_ITS | Encounter Summary ---
Author Organization [facility] Address [address] [place] [address] Care Team Providers Care Can Sealer Name Role Phone Megha Martines DO Primary Care Provider +1- [phone] Encounter Details Date Type Department Care Team (Late st Contact Info) Description 07/25/2001 Outpatient Historical [facility] OBGYN-[facility] [address] [place] [address] Paul Beckham MD [address] [facility] [address] [place] [address] Gynecologic examination (Primary Dx) Social History Tobacco Use Types Packs/Day Years Used Date Smoking Tobacco: Never Assessed Comments Unknown Sex and Gender Information Value Date Recorded Sex Assigned at Not on file 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
--- OUTSIDE RECORDS SUMMARY | 2025-08-06 06:55 | XMS_ITS | Encounter Summary ---
Author Organization [facility] Address [address] [place] [address] Care Team Providers Care Drain Cleaner Name Role Phone Megha Martines DO Primary Care Provider +1- [phone] Encounter Details Date Type Department Care Team (Latest Contact Info) Description 07/25/2001 Outpatient Historical [facility] [address] [facility] [address] [place] [address] Robert Mendez MD NO ADDRESS ON FILE Other screening mammogram (Primary Dx) Social History Tobacco Use Types Packs/Day Years Used Date Smoking Tobacco: Never Assessed Comments Unknown Sex and Gender Information Value Date Recorded Sex Assigned at Not on file 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
--- OUTSIDE RECORDS SUMMARY | 2025-08-06 06:55 | XMS_ITS | Encounter Summary ---
Author Organization [facility] Address [address] [place] [address] Care Team Providers Care Post Acute Care Registered Nurse Name Role Phone Megha Martines DO Primary Care Provider +1- [phone] Encounter Details Date Type Department Care Team (Late st Contact Info) Description 03/21/2003 Outpatient [facility] [address] [facility] [address] [place] [address] Evelyne Santos MD NO ADDRESS ON FILE OT ABNORMAL RADIOLOG EXAM BREAST (Primary Dx) Social History Tobacco Use Types Packs/Day Years Used Date Smoking Tobacco: Never Assessed Comments Unknown Sex and Gender Information Value Date Recorded Sex Assigned at Not on file 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
--- OUTSIDE RECORDS SUMMARY | 2025-08-06 06:55 | XMS_ITS | Clinical Summary ---
Author Organization [facility] Address [address] [place] [address] Care Team Providers Care Heel Molder Name Role Phone Unavailable Primary Care Provider Unavailabl e Allergies Active Allergy Reactions Criticality Noted Date Comments Azithromycin Other (See Comments) 11/11/2018 Blisters around mouth and nose Cefdinir Unknown 05/21/2009 Codeine Nausea and Vomiting Low 05/21/2009 Levofloxacin Unknown 05/21/2009 Ankle and leg pain Penicillins Unknown 05/21/2009 Medications meclizine (ANTIVERT) 25 mg tablet Take 25 mg by mouth daily. 9 Active LISINOPRIL ORAL Take 5 mg by mouth. Active estradioL (ESTRACE) 1 mg tabletIndicatio ns:Postmenopaus al estrogen deficiency Take 1 Tablet (1 mg) by mouth daily. 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 Well woman exam with routine gynecological exam 11/21/2014 Encounters Date Type Department Care Team Description 07/25/2025 8:35 AM CDT Office Visit [facility] [place] [address] [place] [address] Paulina Pedersen MD Well woman exam with routine gynecological exam (Primary Dx); Postmenopausal estrogen deficiency 07/24/2025 External Device Data STL ABSTRACTION Provider, Abstract 07/17/2025 External Device Data [place] ABSTRACTION Provider, Abstract 06/26/2025 [facility] [place] [address] [place] [id number] Paulina Pedersen MD 06/13/2025 External Device Data ST[place] ABSTRACTION Provider, Abstract 06/12/2025 External Device Data [place] ABSTRACTION Provider, Abstract 05/23/2025 External Device Data [place] ABSTRACTION Provider, Abstract 05/23/2025 External Device Data [place] ABSTRACTION Provider, Abstract 05/22/2025 External Device Data STL ABSTRACTION Provider, Abstract from Last 3 Months Immunizations Immunization Administration Dates Next Due Dt Dtp Dtap Vaccine 03/12/1999 Influenza Vaccine Split 3+ Yrs PF IM 09/15/2013, 09/14/2012 Family History Medical History Relation Name Comments Hypertension Brother Hypertension Father Glaucoma Maternal Aunt Cataract Maternal Grandmother Diabetes Maternal Grandmother Glaucoma Maternal Grandmother Cancer Mother Diabetes Mother Other Mother TIA Uterine Cancer Mother Breast Cancer Neg Hx risk assessmen t negative -see media tab Cancer - Other Neg Hx Colon Cancer Neg Hx Melanoma Neg Hx Ovarian Cancer Neg Hx Pancreatic Cancer Neg Hx Uterine or Endometrial Cance r, Not Including Cervical Neg Hx Relation Name Status Comments Brother Father Maternal Aunt Maternal Grandmother Mother uterine cancer Social History Tobacco Use Types Packs/Day Years Used Date Smoking Tobacco: Never Smokeless Tobacco: Never Tobacco Cessation:Counseling Given: Not Answered Alcohol Use Standard Drinks/Week Comments No 0 (1 standard drink = 0.6 oz pur e alcohol) Comments No Sex and Gender Information Value Date Recorded Sex Assigned at Not on file Legal Sex Female 11:09 AM EXTERMINATION SUPERVISOR Gender Identity Not on file Sexual Orientation Not on file Last Filed Vital Signs Vital Sign Reading Time Taken Comments Blood Pressure 112/76 07/25/2025 8:31 AM CDT Pulse 70 11/17/2018 11:50 AM EXTERMINATION SUPERVISOR Temperature - - Respiratory Rate 16 11/17/2018 11:50 AM EXTERMINATION SUPERVISOR Oxygen Saturation - - Inhaled Oxygen Concentration - - Weight 53.1 kg (117 lb) 07/25/2025 8:31 AM CDT Height 162.6 cm (5' 4 ) 07/25/2025 8:31 AM CDT Body Mass Index 20.08 07/25/2025 8:31 AM CDT Plan of Treatment Upcoming Encounters Date Type Department Care Team (Late st Contact Info) Description 10/11/2025 9:40 AM EXTERMINATION SUPERVISOR Appointment [facility] [address] [facility] [address] [place] [address] Paulina Pedersen MD [address] [facility] [address] [place] [address] 08/12/2027 9:15 AM CDT Office Visit [facility] [place] [address] [place] [address] Paulina Pedersen MD [address] [facility] [place] [address] Health Maintenance Due Date Last Done Comments FIT-DNA Q 3 years 2001 FIT/FOBT Q 1 year 2001 Flex Sig/CT Colonography Q 5 years 2001 PNEUMOCOCCAL VACCINE 50+ YEA RS (1 of 1 - PCV) 2006 ZOSTER VACCINE (1 of 2) 2006 DTAP/TDAP/TD VACCINES (2 - Tdap) 03/12/2009 03/12/19 99 OSTEOPOROSIS SCREENING 2021 INFLUENZA VACCINE (#1) 2025 3, 07/19/2023, 07/23/2022, Additional history exists COVID-19 Vaccine (4 - 2024-2 6 season) 2025 08/06/2021, 01/03/2021, 12/06/2020 BREAST CANCER SCREENING 10/10/2025 10/10/20 24, 10/08/2023, 10/05/2022, Additional history exists COLORECTAL SCREENING 11/17/2028 11/17/2018, 11/17/2018, 11/17/2018 Colorectal Cancer Screening 11/17/2028 RSV VACCINE (60+ or ) (1 - 1-dose 75+ series) 2031 Procedures Procedure Name Priority Date/Time Associated Diagnosis Comments CERV/VAG CYTO AGE BASED SCREEN PAP Routine 07/25/2025 2:55 PM CDT Well woman exam with routine gynecological exam MAMMO 3D ANNIE SCREEN BILAT W OR WO CAD Routine 10/10/2024 10:03 AM EXTERMINATION SUPERVISOR Visit for screening mammogram COLONOSCOPY REPORT Routine 11/17/2018 11 :30 AM EXTERMINATION SUPERVISOR from Last 3 Months or Most Recently Relevant to Health Maintenance Results * CERV/VAG CYTO AGE BASED SCREEN PAP (07/25/2025 2:55 PM CDT) COMMENT (PAP): Kathleen Bartlett Comment: This order for age-based cervical cancer and STI screening follows ACOG guidelines(PB 168, 140, RBA944). See individual assays for performing site location. CLINICAL INFORMATION Kathleen Bartlett Comment:None given LAST MENSTRUAL PERIOD Kathleen Bartlett Comment:NONE GIVEN PREV PAP: Kathleen Bartlett Comment:NONE GIVEN PREV BX: Kathleen Bartlett Comment:NONE GIVEN SOURCE Kathleen Bartlett Comment:Vagina ADEQUACY: Kathleen Bartlett Comment:SATISFACTORY FOR NICA LUATION PAP INTERP Kathleen Bartlett Comment: Cytology Results: Negative for intraepithelial lesion or malignancy. COMMENT (PAP TEST) Q uest Nida Bartlett Comment: This Pap test has been evaluated with the ThinPrep(R) Imaging System. FOURDRINIER MACHINE TENDER: Claudia Bartlett Comment: MEF, CT(ASCP) CT Screening Location: Kathleen [place], [facility] [place] [address] [address] CLIA: [id number] Slide preparation performed at: [facility], [address] [place] [address], [address] CLIA: [id number] EXPLANATORY NOTE Que st Nida Bartlett Comment: EXPLANATORY NOTE: The Pap is a screening test for cervical cancer. It is not a diagnostic test and is subject to false negative and false positive results. It is most reliable when a satisfactory sample, regularly obtained, is submitted with relevant clinical findings and history, and when the Pap result is evaluated along with historic and current clinical information. Test Performed at: [place] [address] [address] [id number] Ankur Voss Genital SPECIMEN FROM VAGINA / Unknown 07/25/2025 2:55 PM CDT 07/26/2025 4:04 PM CDT Paulina Pedersen MD PATHOLOGY/CYTOLOGY ORDERAB LES Final Result [facility] [phone] [place] [address] [address] [id number] * MAMMO 3D ANNIE SCREEN BILAT W OR WO CAD (10/10/2024 10:03 AM EXTERMINATION SUPERVISOR) Anatomical Region Laterality Modality Breast Bilateral Mammography Impressions 10/18/2024 5:49 PM EXTERMINATION SUPERVISOR : No mammographic evidence of malignancy. BI-RADS ASSESSMENT: 1 - Negative RECOMMENDATION: Routine annual screening mammography. Narrative 10/18/2024 5:49 PM EXTERMINATION SUPERVISOR EXAM: MAMMO SCRN BILAT 3D ANNIE W OR WO CAD INDICATION: Screening COMPARISON: 10/08/2023 MAMMO SCRN BILAT 3D ANNIE W OR WO CAD, 10/05/2022 MAMMO SCRN BILAT 3D ANNIE W OR WO CAD, 08/29/2021 MAMMO SCRN BILAT 3D ANNIE W OR WO CAD, 05/20/2020 MAMMO SCRN BILAT 3D ANNIE W OR WO CAD, and 02/15/2019 MAMMO SCRN BILAT 3D ANNIE W OR WO CAD BREAST COMPOSITION: There are scattered areas of fibroglandular density. FINDINGS: RIGHT BREAST: There are no suspicious masses, calcifications, or areas of architectural distortion. LEFT BREAST: There are no suspicious masses, calcifications, or areas of architectural distortion. Kayode Cleveland MD MAMMO ORDERABLES Final R esult * COLONOSCOPY REPORT (11/17/2018 11:30 AM EXTERMINATION SUPERVISOR) 11/17/2018 11:3 0 AM EXTERMINATION SUPERVISOR us Navjot Ochoa MD GI PROCEDURE ORDERABLES Final Result [facility] from Last 3 Months or Most Recently Relevant to Health Maintenance Insurance [employer] [facility]
--- OUTSIDE RECORDS SUMMARY | 2025-08-06 06:55 | XMS_ITS | Clinical Summary ---
Author Organization [facility] Address [address] [place] [address] Care Team Providers Care Duty Manager Name Role Phone Megha Martines Tiffanie VANEGAS Primary Care Provider +1- [phone] Allergies Active Allergy Reactions Criticality Noted Date Comments Azithromycin Other (See Comments) 11/11/2018 Blisters around mouth and nose Cefdinir Unknown 05/21/2009 Codeine Nausea and Vomiting Low 05/21/2009 Levofloxacin Unknown 05/21/2009 Ankle and leg pain Penicillins Unknown 05/21/2009 Medications cetirizine (ZyrTEC) 10 mg tablet Take 10 mg by mouth daily. Active meclizine (ANTIVERT) 25 mg tablet Take 25 mg by mouth daily. Active estradioL (ESTRACE) 1 mg tablet TAKE 1 TABLET DAILY 90 Tablet 3 0 Active estradioL (Estrace) 0.01% (0.1 mg/g) vaginal cream Insert 1 Gram vaginally twice weekly. 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 Well woman exam with routine gynecological exam 11/21/2014 Immunizations Immunization Administration Dates Next Due Dt [...] risk assessmen t negative -see media tab Colon Cancer Neg Hx Ovarian Cancer Neg Hx Relation Name Status Comments Brother [...] on file Legal Sex Female 3:50 AM CHIEF PASSENGER SHIP STEWARD/STEWARDESS Gender Identity Not on file Sexual Orientation Not on file Occupation Industry Job Start Date Job End Date Not on file Not on file Not on file Not on file Last Filed Vital Signs Vital Sign Reading Time Taken Comments Blood Pressure 120/70 04/24/2020 11:10 AM CDT Pulse 70 11/17/2018 11:50 AM CHIEF PASSENGER SHIP STEWARD/STEWARDESS Temperature - - Respiratory Rate 16 11/17/2018 11:50 AM CHIEF PASSENGER SHIP STEWARD/STEWARDESS Oxygen Saturation 98% 11/17/2018 11:50 AM CHIEF PASSENGER SHIP STEWARD/STEWARDESS Inhaled Oxygen Concentration - - Weight 53.1 kg (117 lb) 04/24/2020 11:10 AM CDT Height 162.6 cm (5' 4 ) 04/24/2020 11:10 AM CDT Body Mass Index 20.08 04/24/2020 11:10 AM CDT Plan of Treatment Health Maintenance Due Date Last Done Comments FIT-DNA Q 3 years 2001 FIT/FOBT Q 1 year 2001 Flex Sig/CT Colonography Q 5 years 2001 PNEUMOCOCCAL VACCINE 50+ YEA RS (1 of 1 - PCV) 2006 ZOSTER VACCINE (1 of 2) 2006 DTAP/TDAP/TD VACCINES (2 - Tdap) 03/12/2009 03/12/19 99 BREAST CANCER SCREENING 05/20/2021 05/20/20 20, 02/15/2019, 02/11/2018, Additional history exists OSTEOPOROSIS SCREENING 2021 INFLUENZA VACCINE (#1) 2025 09/15/2013, 2011 COLORECTAL SCREENING 11/17/2028 11/17/2018, 11/17/2018, 08/01/2007 Colorectal Cancer Screening 11/17/2028 RSV VACCINE (60+ or ) (1 - 1-dose 75+ series) 2031 Procedures Procedure Name Priority Date/Time Associated Diagnosis Comments MAMMO 3D ANNIE SCREEN BILAT W OR WO CAD Routine 05/20/2020 3:39 PM CDT Screening for breast cancer COLONOSCOPY REPORT 11/17/2018 11 :31 AM CHIEF PASSENGER SHIP STEWARD/STEWARDESS from Last 3 Months or Most Recently Relevant to Health Maintenance Results * MAMMO SCRN BILAT 3D ANNIE W OR WO CAD (05/20/2020 3:39 PM CDT) Anatomical Region Laterality Modality Breast Bilateral Mammography Narrative 05/21/2020 12:23 PM CDT Bilateral Digital Mammogram with CAD and 3D Tomography Reason for Exam: Screening Comparison: Compared to: 02/15/2019 MAMMO SCRN BILAT 3D ANNIE W OR WO CAD, 02/11/2018 MAMMO SCREEN BILAT W OR WO CAD, 01/29/2017 MAMMO DIGITAL SCREEN BILAT, 10/24/2015 MAMMO DIGITAL SCREEN BILAT, and 08/28/2014 MAMMO DIGITAL SCREEN BILAT Technique: 3D MLO and CC digital tomosynthesis images were acquired and synthesized 2D images (C view) were generated. This digital mammogram was also analyzed by the Computer Aided Detection System CAD). Breast Composition: There are scattered areas of fibroglandular density. There are no suspicious masses, areas of architectural distortions, or microcalcifications to suggest malignancy. No significant new findings since the prior mammogram(s). us Paulina Pedersen MD MAMMO ORDERABLES Final Res ult * COLONOSCOPY REPORT (11/17/2018 11:31 AM CHIEF PASSENGER SHIP STEWARD/STEWARDESS) Narrative Procedure Note Navjot Ochoa MD - 11/17/2018 11:30 AM CST [facility] [place][Note 2] GI Patient Name: Jenae Matos Procedure Date: 11/17/2018 Date of : 1955 Admit Type: Outpatient Age: 63 Attending MD: Navjot Ochoa , Procedure: Colonoscopy Indications: Screening for colorectal malignant neoplasm Providers: Navjot Ochoa, Maura Maloney Referring MD: Megha Martines DO Medicines: Midazolam 10 mg IV, Fentanyl 100 micrograms IV Complications: No immediate complications. Procedure: After I obtained informed consent, the scope was passed under direct vision. Throughout the procedure, the patient's blood pressure, pulse, and oxygen saturations were monitored continuously. The Colonoscope was introduced through the anus and advanced to the terminal ileum. The Colonoscope was introduced through the and advanced to. The colonoscopy was performed without difficulty. The patient tolerated the procedure well. The quality of the bowel preparation was good. Estimated Blood Loss: Estimated blood loss: none. Findings: Internal hemorrhoids were found during retroflexion. The hemorrhoids were small. The exam was otherwise without abnormality. Impression: - Internal hemorrhoids. - The examination was otherwise normal. - No specimens collected. Recommendation: - Repeat colonoscopy in 10 years for screening purposes. Navjot Ochoa, 11/17/2018 11:30:23 AM Number of Addenda: 0 Note Initiated On: 11/17/2018 10:59 AM Scope Withdrawal Time 0 hours 9 minutes 27 seconds Scope In: 11:06:14 AM Scope Out: 11:27:36 AM [address] Navjot Ochoa MD GI PROCEDURE ORDERABLES Final Result from Last 3 Months or Most Recently Relevant to Health Maintenance Insurance [employer] Advance Directives For more information, please contact: [phone] * Full Code (Latest Code Status on File) Date Activated Date Inactivated Comments 11/17/2018 10:33 AM 11/17/2018 2:16 PM Care Teams Duty Manager Relationship Specialty Start Date End Date Megha Martines DO PCP - General Family Practice 09/21/18
--- OUTSIDE RECORDS SUMMARY | 2025-08-06 06:55 | XMS_ITS | Encounter Summary ---
Author Organization [facility] Address [address] [place] [address] Care Team Providers Care Line Fisher Name Role Phone Megha Martines DO Primary Care Provider +1- [phone] Encounter Details Date Type Department Care Team (Latest Contact Info) Description 03/14/2003 Outpatient Historical [facility] [address] [place] [address] Parker Ortiz, Jose Dominguez MD NO ADDRESS ON FILE Routine medical exam (Primary Dx); Gynecologic examination Social History Tobacco Use Types Packs/Day Years Used Date Smoking Tobacco: Never Assessed Comments Unknown Sex and Gender Information Value Date Recorded Sex Assigned at Not on file Legal Sex Female 3:50 AM CUTTER FIRST Gender Identity Not on file Sexual Orientation Not on file documented as of this encounter Plan of Treatment Not on file documented as of this encounter Visit Diagnoses Diagnosis Routine medical exam- Primary Routine general medical examination at a health care facility Gynecologic examination Gynecological examination documented in this encounter Care Teams Line Fisher Relationship Specialty Start Date End Date Megha Martines DO PCP - General Family Practice 09/21/18 documented as of this encounter
--- OUTSIDE RECORDS SUMMARY | 2025-08-06 06:55 | XMS_ITS | Encounter Summary ---
Author Organization [facility] Address [address] [place] [address] Care Team Providers Care Manager Spanish Name Role Phone Megha Martines Tiffanie VANEGAS Primary Care Provider +1- [phone] Reason for Referral * Radiology Services (Routine) - Closed Specialty Diagnoses / Procedures Referred By Contac t Referred To Contact Radiology Diagnoses Encounter for screening mammogram for malignant neoplasm of breast Procedures MAMMO SCRN BILAT 3D ANNIE W OR WO CAD Paulina Pedersen MD Phone: tel: fax: [facility] [address] [facility] [address] [place] [address] Phone: tel: fax: Referral ID Status Reason Start Date Expiration Date Visits Re quested Visits Authorized [id number] Closed 09/21/2018 10/22/2019 1 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 Encounter Details Date Type Department Care Team (Late st Contact Info) Description 09/21/2018 Ancillary Orders [facility] Pre-Registration [place] CALL TO MAKE APPOINTMENT ONLY [address] [place] [address] Paulina Pedersen MD [address] [facility] [address] [place] [address] Encounter for screening mammogram for malignant neoplasm of breast Social History Tobacco Use Types Packs/Day Years Used Date Smoking Tobacco: Never Smokeless Tobacco: Never Alcohol Use Standard Drinks/Week Comments No 0 (1 standard drink = 0.6 oz pur e alcohol) Comments No Sex and Gender Information Value Date Recorded Sex Assigned at Not on file Legal Sex Female 3:50 AM ROLLED OATS MILL OPERATOR Gender Identity Not on file Sexual Orientation Not on file Occupation Industry Job Start Date Job End Date Not on file Not on file Not on file Not on file documented as of this encounter Plan of Treatment Not on file documented as of this encounter Results * MAMMO SCRN BILAT 3D ANNIE W OR WO CAD (02/15/2019 12:43 PM CDT) Anatomical Region Laterality Modality Breast Bilateral Mammography Narrative 02/16/2019 11:53 AM CDT Bilateral Digital Mammogram with CAD and 3D Tomography Reason for Exam: Screening Comparison: Compared to: 02/11/2018 MAMMO SCREEN BILAT W OR WO CAD, 01/29/2017 MAMMO DIGITAL SCREEN BILAT, 10/24/2015 MAMMO DIGITAL SCREEN BILAT, 08/28/2014 MAMMO DIGITAL SCREEN BILAT, and 08/25/2013 MAMMO DIGITAL SCREEN BILAT Technique: 3D MLO and CC digital tomosynthesis images were acquired and synthesized 2D images (C view) were generated. This digital mammogram was also analyzed by the Computer Aided Detection System CAD). Breast Composition: The breasts are heterogeneously dense, [...] documented in this encounter Care Teams Manager Spanish Relationship Specialty Start Date End Date Megha Martines DO PCP - General Family Practice 09/21/18 documented as of this encounter
--- OUTSIDE RECORDS SUMMARY | 2025-08-06 06:55 | XMS_ITS | Encounter Summary ---
Author Organization [facility] Address [address] [place] [address] Care Team Providers Care Record Clerk Name Role Phone Megha Martines DO Primary Care Provider +1- [phone] Encounter Details Date Type Department Care Team (Latest Contact Info) Description 04/30/2004 Outpatient [facility] Breast Center [facility] [address] [place] [address] Jose Canales Jr., MD NO ADDRESS ON FILE SCREENING MAMM-MAILG NEOPL-OTHER (Primary Dx) Social History Tobacco Use Types Packs/Day Years Used Date Smoking Tobacco: Never Assessed Comments Unknown Sex and Gender Information Value Date Recorded Sex Assigned at Not on file Legal Sex Female 3:50 AM CLASSROOM INSTRUCTOR Gender Identity Not on file Sexual Orientation Not on file documented as of this encounter Plan of Treatment Not on file documented as of this encounter Visit Diagnoses Diagnosis Other screening mammogram- Primary documented in this encounter Care Teams Record Clerk Relationship Specialty Start Date End Date Megha Martines DO PCP - General Family Practice 09/21/18 documented as of this encounter
--- OUTSIDE RECORDS SUMMARY | 2025-08-06 06:55 | XMS_ITS | Encounter Summary ---
Author Organization [facility] Address [address] [place] [address] Care Team Providers Care Pot Puncher Name Role Phone Megha Martines Primary Care Provider +1- [phone] Reason for Referral * Outpatient Services (Routine) - Closed Specialty Diagnoses / Procedures Referred By Maria C taveras Referred To Contact Diagnoses Other screening mammogram Procedures MAMMO DIGITAL SCREEN BILAT Og Harris MD [address] [facility] [address] [place] [address] Phone: tel: fax: Referral ID Status Reason Start Date Expiration Date Visits Re quested Visits Authorized [id number] Closed 05/23/2010 11/19/2010 1 1 Encounter Details Date Type Department Care Team (Late st Contact Info) Description 05/23/[address] 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 This examination was reviewed with the aid of a computer-aided detection system(CAD). The breast tissue is dense. No significant new findings since the prior mammogram(s). Procedure Note Evelyne Santos MD - 06/13/2010 Bilateral Mammogram Reason for Exam: Screening Comparison: Comparison is made with the prior exam(s) dated 06.01.05,8, 05.21.09 Findings: Bilateral CC and MLO views were obtained. This examination was reviewed with the aid of a computer-aided detectionsystem(CAD). The breast tissue is dense. No significant new findings since the prior mammogram(s). Og Harris MD MAMMO ORDERABLES Final Result documented in this encounter Visit Diagnoses Diagnosis Other screening mammogram Other screening mammogram documented in this encounter Care Teams Pot Puncher Relationship Specialty Start Date End Date Megha Martines DO PCP - General Family Practice 09/21/18 documented as of this encounter
--- OUTSIDE RECORDS SUMMARY | 2025-08-06 06:55 | XMS_ITS | Encounter Summary ---
Author Organization [facility] Address [address] [place] [address] Care Team Providers Care Picc Nurse Name Role Phone Megha Martines DO Primary Care Provider +1- [phone] Encounter Details Date Type Department Care Team (Latest Contact Info) Description 04/14/[address] [facility] [address] [facility] [address] [place] [phone] Robert Mendez MD NO ADDRESS ON FILE Other screening mammogram (Primary Dx) Social History Tobacco Use Types Packs/Day Years Used Date Smoking Tobacco: Never Assessed Comments Unknown Sex and Gender Information Value Date Recorded Sex Assigned at Not on file Legal Sex Female 3:50 AM PUBLIC RELATIONS INTERN Gender Identity Not on file Sexual Orientation Not on file documented as of this encounter Plan of Treatment Not on file documented as of this encounter Visit Diagnoses Diagnosis Other screening mammogram- Primary documented in this encounter Care Teams Picc Nurse Relationship Specialty Start Date End Date Megha Martines DO PCP - General Family Practice 09/21/18 documented as of this encounter
--- OUTSIDE RECORDS SUMMARY | 2025-08-06 06:55 | XMS_ITS | Encounter Summary ---
Author Organization [facility] Address [address] [place] [address] Care Team Providers Care Care Consultant Name Role Phone Megha Martines DO Primary Care Provider +1- [phone] Encounter Details Date Type Department Care Team (Latest Contact Info) Description 06/01/2005 Outpatient [facility] Breast Center [facility] [address] [place] [address] Jose Canales Jr., MD NO ADDRESS ON FILE SCREENING MAMM-MAILG NEOPL-OTHER (Primary Dx) Social History Tobacco Use Types Packs/Day Years Used Date Smoking Tobacco: Never Assessed Comments Unknown Sex and Gender Information Value Date Recorded Sex Assigned at Not on file Legal Sex Female 3:50 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
--- OUTSIDE RECORDS SUMMARY | 2025-08-06 06:55 | XMS_ITS | Encounter Summary ---
Author Organization [facility] Address [address] [place] [address] Care Team Providers Care Dairy Bar Manager Name Role Phone Megha Martines DO Primary Care Provider +1- [phone] Encounter Details Date Type Department Care Team (Late st Contact Info) Description 05/09/2004 Outpatient 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
--- OUTSIDE RECORDS SUMMARY | 2025-08-06 06:55 | XMS_ITS | Encounter Summary ---
Author Organization [facility] Address [address] [place] [address] Care Team Providers Care Book Shelver Name Role Phone Megha Martines DO Primary Care Provider +1- [phone] Encounter Details Date Type Department Care Team (Latest Contact Info) Description 06/01/2005 Outpatient Historical [facility] [address] [place] [address] Parker Ortiz, Jose Dominguez MD NO ADDRESS ON FILE Routine medical exam (Primary Dx); ROUTINE CLOTH EXAMINER EXAMINATION Social History Tobacco Use Types Packs/Day Years Used Date Smoking Tobacco: Never Assessed Comments Unknown Sex and Gender Information Value Date Recorded Sex Assigned at Not on file Legal Sex Female 3:50 AM 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
--- OUTSIDE RECORDS SUMMARY | 2025-08-06 06:55 | XMS_ITS | Encounter Summary ---
Author Organization [facility] Address [address] [place] [address] Care Team Providers Care Top Printing Press Operator Name Role Phone eMgha Martines DO Primary Care Provider +1- [phone] Encounter Details Date Type Department Care Team (Late Contact Info) Description 06/13/2007 Outpatient Historical [facility] FY06 Kiki Rdz MD NO ADDRESS ON FILE Social History Tobacco Use Types Packs/Day Years Used Date Smoking Tobacco: Never Assessed Comments Unknown Sex and Gender Information Value Date Recorded Sex Assigned at Not on file Legal Sex Female 3:50 AM 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
--- OUTSIDE RECORDS SUMMARY | 2025-08-06 06:55 | XMS_ITS | Encounter Summary ---
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
--- OUTSIDE RECORDS SUMMARY | 2025-08-06 06:55 | XMS_ITS | Encounter Summary ---
Author Organization [facility] Address [address] [place] [address] Care Team Providers Care Functional Analyst Name Role Phone Megha Martines DO Primary Care Provider +1- [phone] Encounter Details Date Type Department Care Team (Latest Contact Info) Description 03/21/2003 Outpatient Historical [facility] Parker Ortiz, Jose Dominguez MD NO ADDRESS ON FILE OT ABNORMAL RADIOLOG EXAM BREAST (Primary Dx) Social History Tobacco Use Types Packs/Day Years Used Date Smoking Tobacco: Never Assessed Comments Unknown Sex and Gender Information Value Date Recorded Sex Assigned at Not on file 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
--- OUTSIDE RECORDS SUMMARY | 2025-08-06 06:55 | XMS_ITS | Encounter Summary ---
Author Organization [facility] Address [address] [place] [address] Care Team Providers Care Senior Dot Net Developer Name Role Phone Megha Martines DO Primary Care Provider +1- [phone] Encounter Details Date Type Department Care Team (Latest Contact Info) Description 08/01/2007 Outpatient Historical [facility] Daniel [address] [place] [phone] Navjot Ochoa MD [address] [place] [address] Special Screening for Malignant Neoplasms, Colon (Primary Dx) Social History Tobacco Use Types Packs/Day Years Used Date Smoking Tobacco: Never Assessed Comments Unknown Sex and Gender Information Value Date Recorded Sex Assigned at Not on file Legal Sex Female 3:50 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
--- OUTSIDE RECORDS SUMMARY | 2025-08-06 06:55 | XMS_ITS | Encounter Summary ---
Author Organization [facility] Address [address] [place] [address] Care Team Providers Care Starch Dumper Name Role Phone Megha Martines DO Primary Care Provider +1- [phone] Encounter Details Date Type Department Care Team (Latest Contact Info) Description 06/02/2006 Outpatient [facility] Breast Center [facility] [address] [place] [address] Jose Canales Jr., MD NO ADDRESS ON FILE Other Screening Mammogram (Primary Dx) Social History Tobacco Use Types Packs/Day Years Used Date Smoking Tobacco: Never Assessed Comments Unknown Sex and Gender Information Value Date Recorded Sex Assigned at Not on file Legal Sex Female 3:50 AM HEAD TENNIS COACH Gender Identity Not on file Sexual Orientation Not on file documented as of this encounter Plan of Treatment Not on file documented as of this encounter Visit Diagnoses Diagnosis Other screening mammogram- Primary documented in this encounter Care Teams Starch Dumper Relationship Specialty Start Date End Date Megha Martines DO PCP - General Family Practice 09/21/18 documented as of this encounter
--- OUTSIDE RECORDS SUMMARY | 2025-08-06 06:55 | XMS_ITS | Encounter Summary ---
Author Organization [facility] Address [address] [place] [address] Care Team Providers Care Over The Road Driver Name Role Phone Megha Martines DO Primary Care Provider +1- [phone] Encounter Details Date Type Department Care Team (Latest Contact Info) Description 06/13/2007 Outpatient [facility] Breast Center [facility] [address] [place] [address] Kiki Rdz MD NO ADDRESS ON FILE Other Screening Mammogram (Primary Dx) Social History Tobacco Use Types Packs/Day Years Used Date Smoking Tobacco: Never Assessed Comments Unknown Sex and Gender Information Value Date Recorded Sex Assigned at Not on file Legal Sex Female 3:50 AM DEALERSHIP MANAGER Gender Identity Not on file Sexual Orientation Not on file documented as of this encounter Plan of Treatment Not on file documented as of this encounter Visit Diagnoses Diagnosis Other screening mammogram- Primary documented in this encounter Care Teams Over The Road Driver Relationship Specialty Start Date End Date Megha Martines DO PCP - General Family Practice 09/21/18 documented as of this encounter
--- OUTSIDE RECORDS SUMMARY | 2025-08-06 06:55 | XMS_ITS | Encounter Summary ---
Author Organization [facility] Address [address] [place] [address] Care Team Providers Care Process Maintenance Technician Name Role Phone Megha Martines DO Primary Care Provider +1- [phone] Encounter Details Date Type Department Care Team (Latest Contact Info) Description 03/12/1999 Outpatient Historical [facility] Jaun Justin Jr., MD [address] [place] [phone] Unspecified sinusitis (chronic) (Primary Dx); Headache(784.0); Need for prophylactic vaccination with tetanus-diphtheria (Td); Symptomatic menopausal or female climacteric states Social History Tobacco Use Types Packs/Day Years Used Date Smoking Tobacco: Never Assessed Comments Unknown Sex and Gender Information Value Date Recorded Sex Assigned at Not on file Legal Sex Female 3:50 AM CAT WAGON OPERATOR Gender Identity Not on file Sexual Orientation Not on file documented as of this encounter Plan of Treatment Not on file documented as of this encounter Visit Diagnoses Diagnosis Unspecified sinusitis (chronic)- Primary Headache(784.0) Headache Need for prophylactic vaccination with tetanus-diphtheria (Td) Symptomatic menopausal or female climacteric states documented in this encounter Care Teams Process Maintenance Technician Relationship Specialty Start Date End Date Megha Martines DO PCP - General Family Practice 09/21/18 documented as of this encounter
--- OUTSIDE RECORDS SUMMARY | 2025-08-06 06:55 | XMS_ITS | Encounter Summary ---
Author Organization [facility] Address [address] [facility] Attn: [place] [address] Care Team Providers Care Launchman Name Role Phone Megha Martines DO Primary Care Provider +1- [phone] Encounter Details Date Type Department Care Team (Late st Contact Info) Description 04/14/1999 Outpatient Historical San[facility] Ortiz, Anthony Zaragoza MD [facility] [address] [place] [address] Gynecologic examination (Primary Dx) Social History Tobacco Use Types Packs/Day Years Used Date Smoking Tobacco: Never Assessed Comments Unknown Sex and Gender Information Value Date Recorded Sex Assigned at Not on file Legal Sex Female 3:50 AM SHOWCASE TRIMMER Gender Identity Not on file Sexual Orientation Not on file documented as of this encounter Plan of Treatment Not on file documented as of this encounter Visit Diagnoses Diagnosis Gynecologic examination- Primary Gynecological examination documented in this encounter Care Teams Launchman Relationship Specialty Start Date End Date Megha Martines DO PCP - General Family Practice 09/21/18 documented as of this encounter
--- OUTSIDE RECORDS SUMMARY | 2025-08-06 06:55 | XMS_ITS | Encounter Summary ---
Author Organization [facility] Address [address] [place] [address] Care Team Providers Care Insurance Claims Processor Name Role Phone Megha Martines DO Primary Care Provider +1- [phone] Encounter Details Date Type Department Care Team (Latest Contact Info) Description 03/22/2000 Outpatient Historical [facility] [address] [facility] [address] [place] [phone] Robert Mendez MD NO ADDRESS ON FILE Other screening mammogram (Primary Dx) Social History Tobacco Use Types Packs/Day Years Used Date Smoking Tobacco: Never Assessed Comments Unknown Sex and Gender Information Value Date Recorded Sex Assigned at Not on file Legal Sex Female 3:50 AM ACCOUNT DEVELOPMENT REPRESENTATIVE Gender Identity Not on file Sexual Orientation Not on file documented as of this encounter Plan of Treatment Not on file documented as of this encounter Visit Diagnoses Diagnosis Other screening mammogram- Primary documented in this encounter Care Teams Insurance Claims Processor Relationship Specialty Start Date End Date Megha Martines DO PCP - General Family Practice 09/21/18 documented as of this encounter
--- OUTSIDE RECORDS SUMMARY | 2025-08-06 06:55 | XMS_ITS | Encounter Summary ---
Author Organization [facility] Address [address] [place] [address] Care Team Providers Care Suture Gauger Name Role Phone CarliritaMegha Tiffanie VANEGAS Primary Care Provider +1- [phone] Reason for Referral * Outpatient Services (Routine) - Closed Specialty Diagnoses / Procedures Referred By Maria C t Referred To Contact Radiology Diagnoses Other screening mammogram Procedures MAMMO DIGITAL SCREEN BILAT Kiki Rdz MD NO ADDRESS ON FILE [facility] [address] [facility] [address] [place] [address] Phone: tel: fax: Referral ID Status Reason Start Date Expiration Date Visits Re quested Visits Authorized [id number] Closed 06/14/2013 07/15/2014 1 1 Encounter Details Date Type Department Care Team (Latest Contact Info) Description 06/14/2013 Ancillary Orders [facility] Pre-Registration [place] CALL TO MAKE APPOINTMENT ONLY [address] [place] [address] Kiki Rdz MD NO ADDRESS [...] on file Legal Sex Female 3:50 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 Gender Identity Not on file Sexual Orientation Not on file Occupation Industry Job Start Date Job End Date Not on file Not on file Not on file Not on file documented as of this encounter Plan of Treatment Not on file documented as of this encounter Results * MAMMO DIGITAL SCREEN BILAT (08/25/2013 8:38 AM CDT) Anatomical Region Laterality Modality Breast Bilateral Mammography Narrative 08/28/2013 3:20 PM CDT Bilateral Mammogram Reason for Exam: Screening Comparison: Compared to: 08/23/2012 MAMMO DIGITAL SCREEN BILAT, 06/18/2011 MAMMO DIGITAL SCREEN BILAT, 06/12/2010 MAMMO DIGITAL SCREEN BILAT, 05/21/2009 MAMMO DIGITAL SCREEN BILAT Findings: Bilateral CC and MLO views were obtained. This examination was reviewed with the aid of a computer-aided detection system(CAD). The breast tissue is dense. No significant new findings since the prior mammogram(s). Procedure Note Sheila Stapleton MD - 08/28/2013 Bilateral Mammogram Reason for Exam: Screening Comparison: Compared to: 08/23/2012 MAMMO DIGITAL SCREEN BILAT, 06/18/2011MAMMO DIGITAL SCREEN BILAT, 06/12/2010 MAMMO DIGITAL SCREEN BILAT,05/21/2009 MAMMO DIGITAL SCREEN BILAT Findings: Bilateral CC [...] mammogram documented in this encounter Care Teams Suture Gauger Relationship Specialty Start Date End Date Megha Martines DO PCP - General Family Practice 09/21/18 documented as of this encounter
--- OUTSIDE RECORDS SUMMARY | 2025-08-06 06:55 | XMS_ITS | Encounter Summary ---
Author Organization [facility] Address [address] [place] [address] Care Team Providers Care Spot Welder Body Assembly Name Role Phone Megha Martines DO Primary Care Provider +1- [phone] Encounter Details Date Type Department Care Team (Latest Contact Info) Description 03/14/2003 Outpatient Historical [facility] [address] [facility] [address] [place] [phone] Delmy Arroyo MD NO ADDRESS ON FILE SCREENING MAMM-MAILG NEOPL-OTHER (Primary Dx) Social History Tobacco Use Types Packs/Day Years Used Date Smoking Tobacco: Never Assessed Comments Unknown Sex and Gender Information Value Date Recorded Sex Assigned at Not on file Legal Sex Female 3:50 AM CARDIOGRAPHER Gender Identity Not on file Sexual Orientation Not on file documented as of this encounter Plan of Treatment Not on file documented as of this encounter Visit Diagnoses Diagnosis Other screening mammogram- Primary documented in this encounter Care Teams Spot Welder Body Assembly Relationship Specialty Start Date End Date Megha Martines DO PCP - General Family Practice 09/21/18 documented as of this encounter
--- OUTSIDE RECORDS SUMMARY | 2025-08-06 06:55 | XMS_ITS | Encounter Summary ---
Author Organization [facility] Address [address] [place] [address] Care Team Providers Care Machine Tracer Name Role Phone Megha Martines DO Primary Care Provider +1- [phone] Encounter Details Date Type Department Care Team (Latest Contact Info) Description 06/01/2005 Outpatient Historical [facility] [address] [facility] [address] [place] [phone] Robert Mendez MD NO ADDRESS ON FILE SCREENING MAMM-MAILG NEOPL-OTHER (Primary Dx) Social History Tobacco Use Types Packs/Day Years Used Date Smoking Tobacco: Never Assessed Comments Unknown Sex and Gender Information Value Date Recorded Sex Assigned at Not on file 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
--- OUTSIDE RECORDS SUMMARY | 2025-08-06 06:55 | XMS_ITS | Encounter Summary ---
Author Organization [facility] Address [address] [place] [address] Care Team Providers Care Personnel Interviewer Name Role Phone Megha Martines DO Primary Care Provider +1- [phone] Encounter Details Date Type Department Care Team (Latest Contact Info) Description 06/13/2007 Outpatient Historical [facility] [address] [facility] [address] [place] [id number] Robert Mendez MD NO ADDRESS ON FILE Other Screening Mammogram (Primary Dx) Social History Tobacco Use Types Packs/Day Years Used Date Smoking Tobacco: Never Assessed Comments Unknown Sex and Gender Information Value Date Recorded Sex Assigned at Not on file Legal Sex Female 3:50 AM ANESTHESIOLOGIST AND CRITICAL CARE Gender Identity Not on file Sexual Orientation Not on file documented as of this encounter Plan of Treatment Not on file documented as of this encounter Visit Diagnoses Diagnosis Other screening mammogram- Primary documented in this encounter Care Teams Personnel Interviewer Relationship Specialty Start Date End Date Megha Martines DO PCP - General Family Practice 09/21/18 documented as of this encounter
--- OUTSIDE RECORDS SUMMARY | 2025-08-06 06:55 | XMS_ITS | Encounter Summary ---
Author Organization [facility] Address [address] [place] [address] Care Team Providers Care Genetic Counsellor Name Role Phone Megha aMrtines DO Primary Care Provider +1- [phone] Encounter Details Date Type Department Care Team (Latest Contact Info) Description 05/09/2004 Outpatient Historical [facility] Ortiz, Jose Dominguez MD NO ADDRESS ON FILE UNSP ABNORMAL MAMMOGRAM (Primary Dx) Social History Tobacco Use Types Packs/Day Years Used Date Smoking Tobacco: Never Assessed Comments Unknown Sex and Gender Information Value Date Recorded Sex Assigned at Not on file Legal Sex Female 3:50 AM SUPERVISOR HEAT TREATING Gender Identity Not on file Sexual Orientation Not on file documented as of this encounter Plan of Treatment Not on file documented as of this encounter Visit Diagnoses Diagnosis Abnormal mammogram, unspecified- Primary documented in this encounter Care Teams Genetic Counsellor Relationship Specialty Start Date End Date Megha Martines DO PCP - General Family Practice 09/21/18 documented as of this encounter
--- OUTSIDE RECORDS SUMMARY | 2025-08-06 06:55 | XMS_ITS | Encounter Summary ---
Author Organization [facility] Address [address] [place] [address] Care Team Providers Care Telecommunicator Supervisor Name Role Phone Megha Martines Primary Care Provider +1- [phone] Encounter Details Date Type Department Care Team (Late st Contact Info) Description 05/21/2009 Ancillary Orders [facility] [address] [place] [address] [address] [place] [address] Kiki Rdz MD NO ADDRESS ON FILE Other Screening Mammogram Social History Tobacco Use Types Packs/Day Years Used Date Smoking Tobacco: Never Alcohol Use Standard Drinks/Week Comments No 0 (1 standard drink = 0.6 oz pur e alcohol) Comments No Sex and Gender Information Value Date Recorded Sex Assigned at Not on file Legal Sex Female 3:50 AM CASINO PORTER Gender Identity Not on file Sexual Orientation Not on file documented as of this encounter Plan of Treatment Not on file documented as of this encounter Results * MAMMO DIGITAL SCREEN BILAT (05/21/2009 2:42 PM CDT) Anatomical Region Laterality Modality Breast Bilateral Mammography Narrative 05/22/2009 1:32 PM CDT Bilateral Mammogram Reason for Exam: Screening Comparison: Comparison is made with the prior exam(s) dated 06.01.05, 06.13.07 Findings: Bilateral CC and MLO views were obtained. This examination was reviewed with the aid of a computer-aided detection system(CAD). The breast tissue is dense. No significant new findings since the prior mammogram(s). Procedure Note Evelyne Santos MD - 05/22/2009 Bilateral Mammogram Reason for Exam: Screening Comparison: Comparison is made with the prior exam(s) dated 06.01.05,06.13.07 Findings: Bilateral CC and MLO views were obtained. This examination was reviewed with the aid of a computer-aided detectionsystem(CAD). The breast tissue is dense. No significant new findings since the prior mammogram(s). us W Hari Rdz MD MAMMO ORDERABLES Final Resul t documented in this encounter Visit Diagnoses Diagnosis Other screening mammogram Other screening mammogram documented in this encounter Care Teams Telecommunicator Supervisor Relationship Specialty Start Date End Date Megha Martines DO PCP - General Family Practice 09/21/18 documented as of this encounter
--- OUTSIDE RECORDS SUMMARY | 2025-08-06 06:55 | XMS_ITS | Encounter Summary ---
Author Organization [facility] Address [address] [place] [address] Care Team Providers Care Section Housekeeper Name Role Phone Yasmeen Martinesnifer Tiffanie VANEGAS Primary Care Provider +1- [phone] Reason for Referral * Outpatient Services (Routine) - Closed Specialty Diagnoses / Procedures Referred By Contac t Referred To Contact Diagnoses Inconclusive mammogram Procedures MAMMO DIAGNOSTIC UNI LEFT W OR WO CAD Paulina Pedersen MD Phone: tel: fax: [facility] Pre-Registration [place] CALL TO MAKE APPOINTMENT ONLY [address] [place] [address] Phone: tel: fax: Referral ID Status Reason Start Date Expiration Date Visits Re quested Visits Authorized [id number] Closed 02/02/2017 03/05/2018 1 1 Encounter Details Date Type Department Care Team (Late st Contact Info) Description 02/02/2017 Ancillary Orders [facility] [address] [facility] [address] [place] [address] Paulina Pedersen MD [address] [facility] [place] [address] Inconclusive mammogram Social History Tobacco Use Types Packs/Day Years Used Date Smoking Tobacco: Never Smokeless Tobacco: Never Alcohol Use Standard Drinks/Week Comments No 0 (1 standard drink = 0.6 oz pur e alcohol) Comments No Sex and Gender Information Value Date Recorded Sex Assigned at Not on file 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 I would recommend follow-up screening mammogram in one year. Patient received a result/recommendation letter. [id number] Narrative 02/05/2017 12:23 PM CDT LEFT ADDITIONAL VIEWS 02/05/2017 The patient had a screening on 01/29/2017 and there was thought to be an area of nodular tissue superiorly on the left MLO view. Left MLO spot compression view was obtained as well as left medial to lateral view. The tissue disperses nicely and there is no evidence of mass or distortion or spiculation. The additional views show no change compared with prior exams of 10/24/2015, 08/28/2014, 08/25/2013, 08/23/2012, and 05/21/2009. us Paulina Pedersen MD MAMMO ORDERABLES Final Res ult documented in this encounter Visit Diagnoses Diagnosis Inconclusive mammogram Inconclusive mammogram documented in this encounter Care Teams Section Housekeeper Relationship Specialty Start Date End Date Megha Martines DO PCP - General Family Practice 09/21/18 documented as of this encounter
--- OUTSIDE RECORDS SUMMARY | 2025-08-06 06:55 | XMS_ITS | Encounter Summary ---
Author Organization [facility] Address [address] [place] [address] Care Team Providers Care Photographic Artist Name Role Phone Megha Martines DO Primary Care Provider +1- [phone] Encounter Details Date Type Department Care Team (Latest Contact Info) Description 08/01/2007 Outpatient Historical [facility]3] Gastroenterology[address] [place] [address] Navjot Ochoa MD [address] [place] [address] Special Screening for Malignant Neoplasms, Colon (Primary Dx); Internal Hemorrhoids without Mention of Complication Social History Tobacco Use Types Packs/Day Years Used Date Smoking Tobacco: Never Assessed Comments Unknown Sex and Gender Information Value Date Recorded Sex Assigned at Not on file 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
--- OUTSIDE RECORDS SUMMARY | 2025-08-06 06:55 | XMS_ITS | Encounter Summary ---
Author Organization [facility] Address [address] [place] [address] Care Team Providers Care Floors Buffer Name Role Phone Megha Martines DO Primary Care Provider +1- [phone] Reason for Referral * Outpatient Services (Routine) - Closed Specialty Diagnoses / Procedures Referred By Maria C taveras Referred To Contact Diagnoses Visit for screening mammogram Procedures MAMMO DIGITAL SCREEN BILAT Paulina Pedersen MD Phone: tel: fax: [facility] Pre-Registration [place] CALL TO MAKE APPOINTMENT ONLY [address] [place] [address] Phone: tel: fax: Referral ID Status Reason Start Date Expiration Date Visits Re quested Visits Authorized [id number] Closed 08/05/2015 09/04/2016 1 1 Encounter Details Date Type Department Care Team (Late st Contact Info) Description 08/05/[address] 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 Gender Identity Not on file Sexual Orientation Not on file Occupation Industry Job Start Date Job End Date Not on file Not on file Not on file Not on file documented as of this encounter Plan of Treatment Not on file documented as of this encounter Results * MAMMO DIGITAL SCREEN BILAT (10/24/2015 8:26 AM TALENT DIRECTOR) Anatomical Region Laterality Modality Breast Bilateral Mammography Narrative 10/25/2015 3:23 PM TALENT DIRECTOR Bilateral Mammogram Reason for Exam: Screening Comparison: Compared to: 08/28/2014 MAMMO DIGITAL SCREEN BILAT, 08/25/2013 MAMMO DIGITAL SCREEN BILAT, 08/23/2012 MAMMO DIGITAL SCREEN BILAT, 06/18/2011 MAMMO DIGITAL SCREEN BILAT, 06/12/2010 MAMMO DIGITAL SCREEN BILAT Findings: Bilateral CC and MLO views were obtained. This examination was reviewed with the aid of a computer-aided detection system(CAD). The breast tissue is dense. No significant new findings since the prior mammogram(s). us Paulina Pedersen MD MAMMO ORDERABLES Final Res ult documented in this encounter Visit Diagnoses Diagnosis Visit for screening mammogram- Primary Other screening mammogram Visit for screening mammogram Other screening mammogram documented in this encounter Care Teams Floors Buffer Relationship Specialty Start Date End Date Megha Martines DO PCP - General Family Practice 09/21/18 documented as of this encounter
--- OUTSIDE RECORDS SUMMARY | 2025-08-06 06:55 | XMS_ITS | Encounter Summary ---
Author Organization [facility] Address [address] [place] [address] Care Team Providers Care Sulphate Tester Name Role Phone Megha Martines DO Primary Care Provider +1- [phone] Encounter Details Date Type Department Care Team (Latest Contact Info) Description 02/05/2004 Outpatient Historical [facility] [address] [place] [address] Dean Kenney MD NO ADDRESS ON FILE PREMATURE BEATS NEC (Primary Dx); Mitral valve disorder Social History Tobacco Use Types Packs/Day Years Used Date Smoking Tobacco: Never Assessed Comments Unknown Sex and Gender Information Value Date Recorded Sex Assigned at Not on file 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
--- OUTSIDE RECORDS SUMMARY | 2025-08-06 06:55 | XMS_ITS | Encounter Summary ---
Author Organization [facility] Address [address] [place] [address] Care Team Providers Care Cleaning Supervisor Name Role Phone Megha Martines DO Primary Care Provider +1- [phone] Encounter Details Date Type Department Care Team (Latest Contact Info) Description 06/13/2007 Outpatient Historical [facility] [address] [place] [address] Kiki Rdz MD NO ADDRESS ON FILE Routine Gynecological Examination (Primary Dx) Social History Tobacco Use Types Packs/Day Years Used Date Smoking Tobacco: Never Assessed Comments Unknown Sex and Gender Information Value Date Recorded Sex Assigned at Not on file 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
--- OUTSIDE RECORDS SUMMARY | 2025-08-06 06:55 | XMS_ITS | Encounter Summary ---
Author Organization 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
--- OUTSIDE RECORDS SUMMARY | 2025-08-06 06:55 | XMS_ITS | Encounter Summary ---
Author Organization [facility] Address [address] [place] [address] Care Team Providers Care Welding Machine Assembler Name Role Phone Megha Martines DO Primary Care Provider +1- [phone] Encounter Details Date Type Department Care Team (Latest Contact Info) Description 02/05/2004 Outpatient Historical [facility] Cardiology- [place] [address] [place] [address] Dean Kenney MD NO ADDRESS ON FILE PREMATURE BEATS NEC (Primary Dx) Social History Tobacco Use Types Packs/Day Years Used Date Smoking Tobacco: Never Assessed Comments Unknown Sex and Gender Information Value Date Recorded Sex Assigned at Not on file 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
--- OUTSIDE RECORDS SUMMARY | 2025-08-06 06:55 | XMS_ITS | Encounter Summary ---
Author Organization [facility] Address [address] [place] [address] Care Team Providers Care Instructional Designer Name Role Phone Megha Martines DO Primary Care Provider +1- [phone] Encounter Details Date Type Department Care Team (Latest Contact Info) Description 04/16/1999 Outpatient Historical [facility] Jaun Justin Jr., MD [address] [place] [id number] Unspecified sinusitis (chronic) (Primary Dx) Social History Tobacco Use Types Packs/Day Years Used Date Smoking Tobacco: Never Assessed Comments Unknown Sex and Gender Information Value Date Recorded Sex Assigned at Not on file 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
[2025-08-06 07:01] VITALS: BP 157/64; PULSE 72; RESP 17; TEMP 36.3; O2SAT 97; BMI 19.9
--- NOTE | 2025-08-06 07:02 | W.ED.GENADLT ---
HPI - General Adult General: Chief complaint: Wound/Laceration Stated complaint: fall, R arm lac Time Seen by Provider: 08/06/25 07:02 History of Present Illness: 70-year-old female presents emergency room arrives in the emergency room by private vehicle she had a ground-level chemical fall while she was vacuum this morning and stumbled on the electrical cord that she would know she had her right forearm corner of a shelf sustaining a laceration. There is an angled laceration on the medial volar surface of the right forearm. She did not strike her head she did not lose consciousness she has no neck or back pain or any other injuries. She is unsure of her last tetanus shot Related Data Home Medications ?Medication ?Instructions ?Recorded ?Confirmed estradiol 1 mg tablet 0.5 mg PO DAILY 12/27/20 03/15/25 calcium carbonate 500 mg PO DAILY 03/21/24 03/15/25 cholecalciferol (vitamin D3) 125 125 mcg PO DAILY 03/21/24 03/15/25 mcg (5,000 unit) capsule Previous Rx's ?Medication ?Instructions ?Recorded Right Wrist Cock Up Brace #1 ea 06/20/24 fluticasone propionate 50 See Rx Instructions .Route 06/20/24 mcg/actuation nasal .COMPLEX #16 grams spray,suspension lisinopril 5 mg tablet 5 mg PO DAILY #90 tabs 06/26/25 Allergies Allergy/AdvReac Type Severity Reaction Status Date / Time azithromycin Allergy Unknown Verified 03/15/25 07:53 cefdinir (From Omnicef) Allergy Unknown Verified 03/15/25 07:53 codeine Allergy Unknown Verified 03/15/25 07:53 levofloxacin (From Levaquin) Allergy Unknown Verified 03/15/25 07:53 nitrofurantoin (From Allergy ADR-Muscle Verified 03/15/25 07:53 Macrobid) Pain Penicillins Allergy Unknown Verified 03/15/25 07:53 PFSH ED PFSH: Medical History Allergic rhinitis due to allergen Vertigo History of COVID-19 Family history of alpha 1 antitrypsin deficiency Eustachian tube dysfunction GERD (gastroesophageal reflux disease) Chronic thoracic back pain Surgical History S/P tonsillectomy and adenoidectomy H/O: hysterectomy S/P appendectomy Family History Mother , at age 85 Cancer cervical Diabetes Hypertension Father , at age 74 Hypertension Lung disease Social History Smoking and tobacco/nicotine status: never used tobacco/nicotine Alcohol intake: never Substance/Drug Use: never Household members: spouse Marital status: Current occupational status: retired Physical Exam Const: COMMON NORMALS: no acute distress GENERAL APPEARANCE: cooperative and comfortable ORIENTATION/CONSCIOUSNESS: Yes awake, Yes oriented to person, Yes oriented to place and Yes oriented to time HENMT: COMMON NORMALS: normocephalic, atraumatic and hearing grossly normal bilaterally HEAD & SCALP: normocephalic and atraumatic Neck/C-Spine: OTHER: Full range of motion no pain or discomfort with palpation, rotation, sidebending, extension, or flexion Resp: COMMON NORMALS: normal respiratory effort, No retractions, No use of accessory muscles and clear to auscultation bilaterally AUSCULTATION: clear to auscultation bilaterally Cardio: COMMON NORMALS: regular rate, regular rhythm and No murmurs present (Cardio) RATE: regular rate RHYTHM: regular rhythm Extremity: NARRATIVE EXTREMITY EXAM: Right forearm medial volar surface there is a 7-1/2 cm laceration is gaping no active bleeding. Right upper extremity otherwise neurovascularly intact. Subcutaneous adipose tissue exposed no muscle or bone exposure. EXTREMITY IMAGE (BACK):  1. Neuro: SENSORIUM/ORIENTATION: Yes oriented to person, Yes oriented to place and Yes oriented to time Skin: COMMON NORMALS: no rashes or lesions noted GENERAL SKIN EXAM: no rashes or lesions noted Procedures Laceration Laceration 1: Site: upper extremity (Medial volar) Side (If applicable): right Size (cm): 7.5 Description: flap Depth: simple, single layer Local Anesthetic: lidocaine 1% Amount of anesthesia used (mL): 6 Pre-repair: wound explored and irrigated extensively Skin layer closed with: nylon Size (cm): 5-0 Number of sutures: 2 Technique: simple, interrupted (Single interrupted suture at the apex of the laceration) and running (Single running suture to 2 close the remainder of the laceration) Course Vital Signs: Vital signs: Vital Signs Temperature 97.4 F L 08/06/25 07:01 Pulse Rate 72 08/06/25 07:01 Respiratory Rate 17 08/06/25 07:01 Blood Pressure 157/64 08/06/25 07:01 Pulse Oximetry 97 08/06/25 07:01 Oxygen Delivery Me thod Room Air 08/06/25 07:01 MDM - General Adult Medical Decision Making Tetanus updated wound closed as described in procedure note above. Wound care instructions given apply topical antibiotic ointment once daily keep bandaged while she is participating in any activities where it might get dirty she may bathe but should not soak the wound. Sutures to be removed by primary care in 10 days Medical Records I reviewed the patient's medical records. No radiology studies performed this visit Discharge Plan Discharge Patient Disposition: Home Clinical Impression: Laceration of forearm, left Condition: Stable Prescriptions: No Action estradiol 1 mg tablet 0.5 mg PO DAILY calcium carbonate 500 mg calcium (1,250 mg) tablet,chewable 500 mg PO DAILY cholecalciferol (vitamin D3) 125 mcg (5,000 unit) capsule 125 mcg PO DAILY fluticasone propionate 50 mcg/actuation spray,suspension See Rx Instructions .ROUTE .COMPLEX Qty: 16 5RF Dose Instruction: USE 2 SPRAY(S) IN EACH NOSTRIL TWICE DAILY FOR EAR PRESSURE Rx Instructions: USE 2 SPRAY(S) IN EACH NOSTRIL TWICE DAILY FOR EAR PRESSURE (DME) Right Wrist Cock Up Brace See Rx Instructions .Route .MEDSUPPLY Qty: 1 0RF Rx Instructions: As directed lisinopril 5 mg tablet 5 mg PO DAILY Qty: 90 1RF Discharge Orders: Discharge ED (Routine); Ordered 08/06/25 Ordered By: Darren Billingsley Referrals: Megha Martines DO [Primary Care Provider, Family Practice] Discharge Diet: Usual diet Discharge Activity: Resume usual activity Patient Instructions: Opioid Safety, Pain Management, Patient Portal & Drake Instructions Activity Restrictions/Additional Instructions: Thank you for choosing [facility] for your healthcare needs today. It is very important that you follow up as instructed or that you return to the Emergency Department should you have concerns or if your condition changes or worsens in any way. Emergency department visits are focused on emergent conditions, in some cases you may require further evaluation on an outpatient basis. You were seen in the emergency room after a fall with laceration to your left forearm. The laceration was closed with stitches which will need to be removed in approximately 7 days. Your primary care doctor can remove these for you. Apply [id number] topical antibiotic ointment to the wound once a day. Keep the wound covered when you are doing any activities where it may get dirty. Otherwise you may leave it open. You may bathe but do not soak the wound for extended periods of time. (Please note that included in your discharge packet is information concerning opioid safety and pain management. This information is given to all patients were discharged from the ER regardless of their discharge diagnosis or the medicines they usually take or are prescribed.) Print Language: Yoruba Coding Level of Care Code ED Culinary Art Teacher for Esthela Fitch
[2025-08-06] MEDS: tetanus-dipt-pertussis 0.5 mL SDV IM (07:12)
== END 2025-08-06 07:48 | disposition home or self-care (01) ==
PROVIDERS: Emergency Provider Family Medicine; PCP Family Medicine
DX: S51.811A Laceration without foreign body of right forearm, initial encounter (principal); W18.30XA Fall on same level, unspecified, initial encounter
CPT/HCPCS: 12002; 90471; 90715; 96372; 99283; J9999

== ENCOUNTER → 2025-11-02 10:08 | Outpatient (BNVA) | payer MEDICARE, SELFPAY | PROVIDERS: PCP Family Medicine; Visit Provider Emergency Medicine | DX: J06.9 Acute upper respiratory infection, unspecified (principal); N39.41 Urge incontinence; N39.0 Urinary tract infection, site not specified | CPT/HCPCS: 81000; 87086; 87400; 87426 ==